=== PATIENT | female | born 1960 | race African-American/Black ===

== ENCOUNTER 2017-12-23 07:14 | Emergency (ER) | payer MEDICAID ==
[~2017-12-23] VITALS: Ht 172.7 cm; Wt 126.1 kg
[~2017-12-23 07:14] MED LIST: AZITHROMYCIN250 MG ORAL; NKM; NORVASC5 MG ORAL
[2017-12-23 07:47] VITALS: BP 183/110
[2017-12-23] MEDS ORDERED: HYDROCHLOROTHIA25 MG ORAL (07:48)
[2017-12-23] MEDS ORDERED: TESSALON PERLE100 MG ORAL (07:48)
[2017-12-23] MEDS ORDERED: AMLODIPINE BESY10 MG ORAL (07:48)
--- NOTE | 2017-12-23 07:55 | Emergency Room Report ---
History of Present Illness General Chief Complaint: Upper Respiratory Illness Source: Patient Present Illness HPI 57-year-old female with pmhx high blood pressure p/w cough for 7 days. Pt states cough is productive, with clear non bloody sputum. Also with runny nose with clear nasal discharge. Denies fever chills sob or chest pain. + sick contacts(granddaughter) Patient also found to be hypertensive, no complaining of any chest pain, no lightheadedness or dizziness States that she ran out of her high blood pressure medication a few days ago Allergies: Coded Allergies: MORPHINE (Unverified Allergy, Unknown, 01/08/15) Patient History Past Medical History: see triage record Past Surgical History: none Pertinent Family History: none Reviewed Nursing Documentation: PMH: Agreed, PSxH: Agreed Nursing Documentation-PMH Hx Cardiac Problems: Yes Hx Hypertension: Yes Hx Diabetes: Yes - pre dm Hx Cancer: No Hx Gastrointestinal Problems: Yes Hx Neurological Problems: No Review of Systems All Other Systems: negative except mentioned in HPI Physical Exam Vital Signs Date Time Temp Pulse Resp B/P (MAP) Pulse Ox O2 Delivery O2 Flow Rate FiO2 12/23/17 07:19 98.0 63 20 207/106 95 Room Air 98.1 Sp02 EP Interpretation: reviewed, normal General Appearance: normal inspection, well appearing, no apparent distress, alert, GCS 15, non-toxic Head: normocephalic, atraumatic Eyes: bilateral eye normal inspection, bilateral eye PERRL, bilateral eye EOMI ENT: normal ENT inspection, normal pharynx, normal voice, moist mucus membranes Neck: normal inspection, full range of motion, supple Respiratory: normal inspection, lungs clear, normal breath sounds, no respiratory distress, no retraction, no wheezing, speaking full sentences, chest symmetrical Cardiovascular #1: normal inspection, regular rate, rhythm, no edema, normal capillary refill Cardiovascular #2: 2+ radial (R), 2+ radial (L) Gastrointestinal: normal inspection, non tender, soft, non-distended, no guarding Musculoskeletal: normal inspection, back normal, normal range of motion, non- tender Neurologic: normal inspection, alert, oriented x3, responsive, motor strength/ tone normal, sensory intact, normal gait, speech normal Psychiatric: normal inspection, judgement/insight normal, memory normal Skin: normal inspection, normal color, no rash, warm/dry, well hydrated, normal turgor Medical Decision Making Diagnostic Impression: Primary Impression: Medication refill Additional Impressions: Upper respiratory infection Hypertension ER Course 57-year-old female p/w cough for 7 days. DDX: Viral URI vs. pneumonia Also with hypertension, asymptomatic Plan: CXR ER course: Patient remains nontoxic, not in resp distress. Patient given amlodipine and hydrochlorothiazide. Which is her home medications which she had run out of Disposition: Patient is to be discharged home with a prescription of Tessalon Perles, amlodipine, hydrochlorothiazide Strict precautions discussed with patient on when to return to the emergency room including hemoptysis, high fevers, chills, SOB, chest pain which may indicate severe illness. Patient is to follow up with their primary care doctor within 5 days in order for recheck, as well as getting a refill for her medications. Patient agrees with plan. Please note that this Emergency Department Report was dictated using Paystikchief medical officer technology software, occasionally this can lead to erroneous entry secondary to interpretation by the dictation equipment Chest X-ray CXR: Ordered: Yes 1 view Indication: Cough EP interpretation: Yes Interpretation: No consolidation, no effusion, no PTX, no acute cardiopulmonary disease Impression: No acute disease Electronically signed by Lizy Baez MD Last Vital Signs Date Time Temp Pulse Resp B/P (MAP) Pulse Ox O2 Delivery O2 Flow Rate FiO2 12/23/17 07:47 98.1 63 19 183/110 98 Room Air 98.1 Disposition: HOME, SELF-CARE Condition: Improved Scripts Hydrochlorothiazide* (HYDROCHLOROTHIAZIDE*) 25 Mg Tablet 25 MG ORAL DAILY, #14 TAB Prov: Lizy Baez M.D. 12/23/17 Benzonatate* (TESSALON PERLE*) 100 Mg Capsule 100 MG ORAL THREE TIMES A DAY, #21 PERLE Prov: Lizy Baez M.D. 12/23/17 Amlodipine Besylate* (AMLODIPINE BESYLATE*) 10 Mg Tablet 10 MG ORAL DAILY for 14 Days, #14 TAB 0 Refills Prov: Lizy Baez M.D. 12/23/17 Patient Instructions: Upper Respiratory Infection, Adult Additional Instructions: PLEASE SEE YOUR DOCTOR IN 1 WEEK TO GET REFILLS FOR OUR MEDICATION Lizy Baez M.D. Dec 23, 2017 07:55
[2017-12-23 08:20] VITALS: BP 179/104
--- NOTE | 2017-12-23 12:28 | Diagnostic Imaging Report ---
Indication: Reason For Exam: COUGH Technique: One view of the chest Comparison: 01/08/2015 Findings: The heart is enlarged. The aorta is tortuous ectatic and calcified Impression: No acute process
== END 2017-12-23 08:20 | disposition home or self-care (01) ==
LOC: EMR 07:50
DX: Z76.0 Encounter for issue of repeat prescription (principal); J06.9 Acute upper respiratory infection, unspecified; I10 Essential (primary) hypertension; Z88.5 Allergy status to narcotic agent
CPT/HCPCS: 71045; 99284

== ENCOUNTER 2020-01-17 07:28 | Inpatient (IN) | payer OTHER ==
[2020-01-17] VITALS (26 sets, daily range): BP systolic 97–166; BP diastolic 73–119
[~2020-01-17] VITALS: Ht 172.7 cm; Wt 158.8 kg
[~2020-01-17 07:28] MED LIST changes: +ALBUTEROL SULF8.5 GM INH; +AMLODIPINE BESY10 MG ORAL; +GUAIFENESIN DM118 M1 ORAL; +HYDROCHLOROTHIA25 MG ORAL; +PREDNISONE20 MG ORAL; +TESSALON PERLE100 MG ORAL; +ZITHROMAX250 MG ORAL
--- NOTE | 2020-01-17 07:35 | NUR ---
ED Nurse Note: Patient ALEJANDRA RA 94 from home to ED d/t shortness of breath x 2 hours along with new onset rapid HR of 191. Per EMS, patient was given adenosine 6mg and 12 mg en route to the hospital with no resolution of rapid HR. Patient currently short of breath, states she feels like she is having a panic attack. Patient on the engine monitor, Dr. Ulloa at bedside. Patient arrived with 20 g IV in left AC inserted by EMS. Blood drawn and sent to lab along with urine. Will give IV Cardizem per ERMD order. Addendum: 01/17/20 at 1119 by MILANA ED Nurse Note: Patient AxO x 4, able to verbalize needs. Cooperative and follows commands.
[2020-01-17 07:45] LABS: BASOPHILS % (AUTO) 1.1 % (0.0-2.0); EOSINOPHILS % (AUTO) 3.8 % (0.0-3.0); HEMATOCRIT 47.6 % (37.0-47.0); HEMOGLOBIN 15.5 G/DL (12.0-16.0); LYMPHOCYTES % (AUTO) 26.7 % (20.0-45.0); MEAN CORPUSCULAR VOLUME 83 FL (80-99); MONOCYTES % (AUTO) 5.6 % (1.0-10.0); NEUTROPHILS % (AUTO) 62.8 % (45.0-75.0); PLATELET COUNT 328 K/UL (150-450); RED BLOOD COUNT 5.74 M/UL (4.20-5.40); RED CELL DISTRIBUTION WIDTH 11.8 % (11.6-14.8); WHITE BLOOD COUNT 11.5 K/UL (4.8-10.8)
[2020-01-17] MEDS ORDERED: dilTIAZem HCl 25mg/5ml Inj IVP ONE ×2 (07:45→08:00)
[2020-01-17] MEDS ORDERED: Adenosine 6mg/2ml Inj IVP ONE (07:45)
[2020-01-17] MEDS ORDERED: dilTIAZem HCl 60mg tab ORAL ONE (07:45)
--- NOTE | 2020-01-17 07:45 | Emergency Room Report ---
History of Present Illness General Chief Complaint: Dyspnea/Respdistress Source: Patient Present Illness HPI Disclaimer: Please note that this report is being documented using [employer] technology. This can lead to erroneous entry secondary to incorrect interpretation by the dictating instrument. HPI: 59-year-old female history of hypertension presents for evaluation of chest pain shortness of breath. Began this morning approximately 6:30 AM. She reports feeling increasingly nervous along with palpitations. Recently seen by her PMD for an annual physical and diagnosed with a "heart abnormality" and was referred to cardiology but has not yet been evaluated. She has been compliant with her amlodipine, hydrochlorothiazide and aspirin regimen thus far. Denies recent fever, chills, cough, vomiting, diarrhea, recent travel or known sick contacts. She has been in isolation according to CDC and health department guidelines in the setting of the novel coronavirus pandemic. No prior instances of similar sensations. She is unsure about her new cardiac diagnosis. Former smoker. PMH: Hypertension PSH: Reviewed Allergies: Codeine, morphine Social Hx: Former smoker Allergies: Coded Allergies: CODEINE (Unverified Allergy, Unknown, 10/27/19) MORPHINE (Unverified Allergy, Unknown, 01/08/15) COVID-19 Screening Contact w/high risk pt: No Recent Travel to affected area: No Experienced COVID-19 symptoms?: No Nursing Documentation-PMH Past Medical History: No History, Except For Hx Cardiac Problems: Yes Hx Hypertension: Yes Hx Diabetes: Yes (pre dm ) Hx Cancer: No Hx Gastrointestinal Problems: Yes Hx Neurological Problems: No Review of Systems All Other Systems: negative except mentioned in HPI Physical Exam Vital Signs Date Time Temp Pulse Resp B/P (MAP) Pulse Ox O2 Delivery O2 Flow Rate FiO2 01/17/20 07:26 161 25 166/119 (135) 99 Room Air General: Awake and alert, no acute distress HEENT: NC/AT. EOMI. Cardiovascular: Tachycardic rate with irregularly irregular rhythm. Resp: Normal work of breathing. No cough Abdomen: Abdomen is soft, nondistended. Nontender Skin: Intact. No abrasions, laceration or rash over the exposed skin MSK: Normal tone and bulk. Moving all extremities. No obvious deformity. Neuro: Awake and alert. Mentating appropriately. Procedures Critical Care Time Critical Care Time Total critical care time: Approximately 45 minutes Due to a high probability of clinically significant, life threatening deterioration, the patient required the highest level of preparedness to intervene emergently and I personally spent this critical care time directly and personally managing the patient. This critical care time included obtaining a history, examining the patient, pulse oximetry, ordering and reviewing studies , ordering treatments, evaluating response to treatment and updating management plan as needed, frequent reassessment and discussion with other providers as well as arranging for ultimate disposition. This critical to care time was performed to assess and manage the high probability of life-threatening deterioration that could result in multiorgan failure. This critical care time is separate from the separately billable procedures and treating other patients. Medical Decision Making Diagnostic Impression: Primary Impression: Rapid atrial fibrillation ER Course Is a 59-year-old female presenting for evaluation of chest pain shortness of breath. She arrives tachycardic with an irregularly irregular rhythm consistent with rapid atrial fibrillation. Also on the differential SVT, WPW, ACS, multifocal atrial tachycardia to name a few. Based on initial EKG patient was given IV Cardizem bolus and loaded with oral Cardizem as well. Rate improving though remains tachycardic. Will give additional Cardizem and switch to drip if necessary. Vital signs otherwise are within normal limits showing mild hypertension. Mentating appropriately. Will obtain labs including cardiac enzymes, chest x-ray. Laboratory Tests Test 01/17/20 07:30 White Blood Count 11.5 K/UL (4.8-10.8) H Red Blood Count 5.74 M/UL (4.20-5.40) H Hemoglobin 15.5 G/DL (12.0-16.0) Hematocrit 47.6 % (37.0-47.0) H Mean Corpuscular Volume 83 FL (80-99) Mean Corpuscular Hemoglobin 27.0 PG (27.0-31.0) Mean Corpuscular Hemoglobin Concent 32.6 G/DL (32.0-36.0) Red Cell Distribution Width 11.8 % (11.6-14.8) Platelet Count 328 K/UL (150-450) Mean Platelet Volume 6.8 FL (6.5-10.1) Neutrophils (%) (Auto) 62.8 % (45.0-75.0) Lymphocytes (%) (Auto) 26.7 % (20.0-45.0) Monocytes (%) (Auto) 5.6 % (1.0-10.0) Eosinophils (%) (Auto) 3.8 % (0.0-3.0) H Basophils (%) (Auto) 1.1 % (0.0-2.0) Sodium Level 143 MMOL/L (136-145) Potassium Level 3.3 MMOL/L (3.5-5.1) L Chloride Level 103 MMOL/L (98-107) Carbon Dioxide Level 26 MMOL/L (21-32) Anion Gap 14 mmol/L (5-15) Blood Urea Nitrogen 12 mg/dL (7-18) Creatinine 0.9 MG/DL (0.55-1.30) Estimated Glomerular Filtration Rate > 60 mL/min (>60) Glucose Level 216 MG/DL (74-106) H Calcium Level 9.5 MG/DL (8.5-10.1) Phosphorus Level 3.1 MG/DL (2.5-4.9) Magnesium Level 1.7 MG/DL (1.8-2.4) L Total Bilirubin 0.8 MG/DL (0.2-1.0) Aspartate Amino Transferase (AST) 14 U/L (15-37) L Alanine Aminotransferase (ALT) 32 U/L (12-78) Alkaline Phosphatase 97 U/L (46-116) Troponin I 0.000 ng/mL (0.000-0.056) Pro-B-Type Natriuretic Peptide 9 pg/mL (0-125) Total Protein 8.0 G/DL (6.4-8.2) Albumin 3.8 G/DL (3.4-5.0) Globulin 4.2 g/dL Albumin/Globulin Ratio 0.9 (1.0-2.7) L EKG Diagnostic Results EKG Time: 07:25 Rate: tachycardiac Rhythm: other (Irregularly regular rhythm) Other Impression Rapid atrial fibrillation with left axis deviation. ASA given to the pt in ED: Yes Rhythm Strip Diag. Results Rhythm Strip Time: 07:25 EP Interpretation: yes Rate: 160s Rhythm: other (Irregularly irregular rhythm) Chest X-Ray Diagnostic Results Chest X-Ray Diagnostic Results : Chest X-Ray Ordered: Yes # of Views/Limited/Complete: 1 View Indication: Shortness of Breath EP Interpretation: Yes Interpretation: other (Bilateral vascular congestion. No infiltrate. No pneumothorax.) Impression: Other (Bilateral vascular congestion. ) Reevaluation Time: 09:22 Last Vital Signs Date Time Temp Pulse Resp B/P (MAP) Pulse Ox O2 Delivery O2 Flow Rate FiO2 01/17/20 07:26 161 25 166/119 (135) 99 Room Air Reevaluation Impression Troponin within normal limits. Patient remains in atrial fibrillation despite bolus of IV Cardizem x2 and oral Cardizem load. Started Cardizem drip. Will titrate to effect. 0.25 mg of digoxin was given as well. Chest x-ray shows no infiltrate and is otherwise unchanged from previous. She is feeling somewhat better. Blood pressure remained stable. Patient be admitted to the ICU. Admit to panel physician. Disposition: ADMITTED INPATIENT Condition: Serious Referrals: [facility],REFERRING (PCP) Edmund Ulloa MD Jan 17, 2020 07:45
--- NOTE | 2020-01-17 07:59 | NUR ---
ED Nurse Note: Updated patient's weight as stated by patient. ERMD notified. ERMD ordered to administer 35mg 2nd Cardizem (0.35mg/kg) instead of 30mg. STALIN Warner made aware.
[2020-01-17] MEDS ORDERED: dilTIAZem HCl 50mg/10ml Inj IVP ONE ×3 (08:00→11:45)
[2020-01-17 08:05] LABS: ALANINE AMINOTRANSFERASE 32 U/L (12-78); ALBUMIN 3.8 G/DL (3.4-5.0); ALBUMIN/GLOBULIN RATIO 0.9 (1.0-2.7); ALKALINE PHOSPHATASE 97 U/L (46-116); ANION GAP 14 mmol/L (5-15); ASPARTATE AMINO TRANSFERASE 14 U/L (15-37); BILIRUBIN,TOTAL 0.8 MG/DL (0.2-1.0); BLOOD UREA NITROGEN 12 mg/dL (7-18); CARBON DIOXIDE 26 MMOL/L (21-32); CHLORIDE 103 MMOL/L (98-107); CREATININE 0.9 MG/DL (0.55-1.30); POTASSIUM 3.3 MMOL/L (3.5-5.1); SODIUM 143 MMOL/L (136-145)
[2020-01-17] MEDS ORDERED: ASPIR 8181 MG ORAL (08:12)
[2020-01-17 08:17] LABS: CALCIUM 9.5 MG/DL (8.5-10.1)
[2020-01-17 08:26] LABS: PHOSPHORUS 3.1 MG/DL (2.5-4.9)
[2020-01-17] MEDS ORDERED: dilTIAZem Premix 125mg/125ml 125 ML IVPB SCH ×2 (08:30→16:00)
--- NOTE | 2020-01-17 08:45 | NUR ---
ED Nurse Note: Patient stable, HR currently 136, BP 100/83. Patient feel better than when she arrived, she is tolerating medications well.
--- NOTE | 2020-01-17 09:00 | Diagnostic Imaging Report ---
Indication: Reason For Exam: SOB Technique: One view of the chest Comparison: none Findings: Body habitus limits evaluation. Stable slightly prominent midlung and basilar interstitial markings without definite discrete infiltrates. Normal heart size. Impression: Stable prominent mid and lower lung interstitial markings without discrete infiltrate, suspect baseline for this patient as similar to the prior study. No definite acute process
--- NOTE | 2020-01-17 09:00 | NUR ---
ED Nurse Note: Cardizem titrated up from 10 mg/hr to 15 mg/hr per Dr. Ulloa. Patient tolerating well.
[2020-01-17] MEDS ORDERED: Digoxin 0.5mg/2ml Inj IVP ONE (09:45)
--- NOTE | 2020-01-17 10:00 | NUR ---
ED Nurse Note: Patient resting in bed, no s/s of acute distress. BP 105/72, HR 123, O2 95%, 21RR.
--- NOTE | 2020-01-17 10:53 | NUR ---
ED Nurse Note: Patient O2 sat decreased to 89% while sleeping. Dr. Ulloa aware, placed patient on 2L NC per Dr. Ulloa.
--- NOTE | 2020-01-17 12:25 | Cardiac Electrophysiology PN ---
Subjective Subjective [id number] Objective Last 24 Hour Vital Signs Date Time Temp Pulse Resp B/P (MAP) Pulse Ox O2 Delivery O2 Flow Rate FiO2 01/17/20 10:32 148 168/106 01/17/20 09:43 144 01/17/20 08:01 155 145/86 01/17/20 08:00 168 175/110 01/17/20 07:44 161 01/17/20 07:35 98.1 165 25 166/119 99 Room Air 01/17/20 07:35 161 25 Room Air 01/17/20 07:26 161 25 166/119 (135) 99 Room Air Laboratory Tests Test 01/17/20 07:30 White Blood Count 11.5 K/UL (4.8-10.8) H Red Blood Count 5.74 M/UL (4.20-5.40) H Hemoglobin 15.5 G/DL (12.0-16.0) Hematocrit 47.6 % (37.0-47.0) H Mean Corpuscular Volume 83 FL (80-99) Mean Corpuscular Hemoglobin 27.0 PG (27.0-31.0) Mean Corpuscular Hemoglobin Concent 32.6 G/DL (32.0-36.0) Red Cell Distribution Width 11.8 % (11.6-14.8) Platelet Count 328 K/UL (150-450) Mean Platelet Volume 6.8 FL (6.5-10.1) Neutrophils (%) (Auto) 62.8 % (45.0-75.0) Lymphocytes (%) (Auto) 26.7 % (20.0-45.0) Monocytes (%) (Auto) 5.6 % (1.0-10.0) Eosinophils (%) (Auto) 3.8 % (0.0-3.0) H Basophils (%) (Auto) 1.1 % (0.0-2.0) Sodium Level 143 MMOL/L (136-145) Potassium Level 3.3 MMOL/L (3.5-5.1) L Chloride Level 103 MMOL/L (98-107) Carbon Dioxide Level 26 MMOL/L (21-32) Anion Gap 14 mmol/L (5-15) Blood Urea Nitrogen 12 mg/dL (7-18) Creatinine 0.9 MG/DL (0.55-1.30) Estimat Glomerular Filtration Rate > 60 mL/min (>60) Glucose Level 216 MG/DL (74-106) H Calcium Level 9.5 MG/DL (8.5-10.1) Phosphorus Level 3.1 MG/DL (2.5-4.9) Magnesium Level 1.7 MG/DL (1.8-2.4) L Total Bilirubin 0.8 MG/DL (0.2-1.0) Aspartate Amino Transf (AST/SGOT) 14 U/L (15-37) L Alanine Aminotransferase (ALT/SGPT) 32 U/L (12-78) Alkaline Phosphatase 97 U/L (46-116) Troponin I 0.000 ng/mL (0.000-0.056) Pro-B-Type Natriuretic Peptide 9 pg/mL (0-125) Total Protein 8.0 G/DL (6.4-8.2) Albumin 3.8 G/DL (3.4-5.0) Globulin 4.2 g/dL Albumin/Globulin Ratio 0.9 (1.0-2.7) Sim Patel MD Jan 17, 2020 12:25
--- NOTE | 2020-01-17 12:30 | NUR ---
NURSE NOTES: Pt received from IRASEMA Warner RN in stable condition without cardiopulmonary distress via hospital bed and O2 tank. Pt is AAOx4 on 2L O2 via NC, able to follow commands, bilat pupils 3mm PERRLA +. Pt hooked to quality assurance monitor final and is noted in Afib with rate of 110-120 bpm. Pt denies SOB and CP at this time. VS as follows: BP124/107 HR 124 Temp 98.8 F ax RR 19 spO2 99%. Pt on 2L O2 via NC with breath sounds that are CTA to all lung lobes upon auscultation. Skin is intact at this time. Bowel sounds active to all quadrants, abd is round, soft, and non-tender. Pt agreed to request bedpan to void. Pt has a LAC 18g IV running cardizem drip at 15 mg/hr. Pt belongings reviewed with pt and IRASEMA Warner RN. Pt educated on fall precaution and given call light, bed is in lowest position, yellow socks on, bed alarm on, side rails up x 3, call light within reach. Will continue to monitor pt.
--- NOTE | 2020-01-17 12:41 | NUR ---
ED Nurse Note: Report given to Bonita GANT in the ICU.
--- NOTE | 2020-01-17 14:00 | NUR ---
NURSE NOTES: Left message for Dr Zendejas with request for admission orders, awaiting call back.
--- NOTE | 2020-01-17 14:15 | NUR ---
NURSE NOTES: Left message for Dr Kinsey with potassium results for today of 3.3, awaiting call back.
--- NOTE | 2020-01-17 15:00 | NUR ---
NURSE NOTES: Received call back from Dr Zendejas with order to continue cardizem drip (titrate per protocol), continue ASA 81 mg PO daily, discontinue home meds (HCTZ and Norvasc).
[2020-01-17] MEDS ORDERED: Digoxin 0.5mg/2ml Inj IVP SCH (15:15)
--- NOTE | 2020-01-17 15:50 | NUR ---
NURSE NOTES: Spoke with Dr Sainz over phone, received order for potassium replacement (20 meQ KDUR PO once).
--- NOTE | 2020-01-17 16:00 | NUR ---
NURSE NOTES: Pt given 20 meQ KDUR PO, new cardizem bag hung at this time, HR noted 85-90 bpm (controlled Afib to court recording monitor).
--- NOTE | 2020-01-17 16:45 | NUR ---
NURSE NOTES: Cardizem drip now titrated down to 10 mg/hr with HR in 80s at this time, pt in no distress. Purewick placed for frequent voiding.
--- NOTE | 2020-01-17 17:14 | Consultation ---
DATE OF CONSULTATION: 01/17/2020 PULMONARY CONSULTATION/ICU CONSULTATION HISTORY OF PRESENT ILLNESS: This is a 59-year-old female with a history of previous marijuana smoking and hypertension, who came to hospital with chest pain. She also reports cough and shortness of breath. The patient states she has been seeing her manager business information/doctor who states that she has abnormality in her heart. She is unable to provide me further history. The patient states she is hypertensive and takes amlodipine and HCTZ. PAST MEDICAL HISTORY: Hypertension, prediabetes, marijuana smoker. PAST SURGICAL HISTORY: None reported. ALLERGIES: To codeine, morphine. HOME MEDICATIONS: Amlodipine, , aspirin. REVIEW OF SYSTEMS: Denies any headaches, hematemesis, melena, hematochezia, . PHYSICAL EXAMINATION: GENERAL: Reveals obese 59-year-old female. VITAL SIGNS: Blood pressure 140/80, heart rate 150, respirations are 18, O2 saturation 99% on room air. HEENT: Unremarkable. LUNGS: Decreased breath sounds bilaterally. ABDOMEN: Soft. EXTREMITIES: There is no edema. LABORATORY DATA: Lab testing shows white count 87616, otherwise normal CBC and BMP. Potassium 3.3, glucose 216, magnesium 1.7. Microbiology is pending. X-ray chest shows bilateral interstitial markings, appear to be chronic compared to previous. EKG shows atrial fibrillation with RVR. IMPRESSION: 1. Atrial fibrillation with RVR. 2. Hypertension. 3. Marijuana smoker. DISCUSSION: Admit to the hospital. Rate control with digoxin and Cardizem. ICU admission. We will follow carefully. Dillon Sainz M.D. DR: Isamar JOB#: [id number] CC:
--- NOTE | 2020-01-17 18:02 | Consultation ---
Consult Note Consult Note I am asked to evaluate the patient at the request of Dr. Kinsey for fluid and electrolyte management HPI: 59-year-old female history of hypertension presents for evaluation of chest pain shortness of breath. Began this morning approximately 6:30 AM. She reports feeling increasingly nervous along with palpitations. Recently seen by her PMD for an annual physical and diagnosed with a "heart abnormality" and was referred to cardiology but has not yet been evaluated. She has been compliant with her amlodipine, hydrochlorothiazide and aspirin regimen thus far. Denies recent fever, chills, cough, vomiting, diarrhea, recent travel or known sick contacts. She has been in isolation according to CDC and health department guidelines in the setting of the novel coronavirus pandemic. No prior instances of similar sensations. She is unsure about her new cardiac diagnosis. Former smoker. PMH: Hypertension PSH: Reviewed Social Hx: Former smoker Allergies: CODEINE (Unverified Allergy, Unknown, 10/27/19) MORPHINE (Unverified Allergy, Unknown, 01/08/15) COVID-19 Screening Contact w/high risk pt: No Recent Travel to affected area: No Experienced COVID-19 symptoms?: No Nursing Documentation-PMH Past Medical History: No History, Except For Hx Cardiac Problems: Yes Hx Hypertension: Yes Hx Diabetes: Yes - pre dm Hx Gastrointestinal Problems: Yes Assessment/Plan Electrolyte imbalance Low magnesium and low potassium Obese Marijuana abuser Atrial fibrillation with rapid ventricular rate Hypertension Plan: Per cardiology advice Electrolytes in check Chemistry panels and electrolyte check Urine for analysis and tox screen Keep the blood pressure in check Per orders Ghulam Cutler MD Jan 17, 2020 18:02
[2020-01-17] MEDS ORDERED: Metoclopramide 10mg/2ml Inj IVP PRN (18:15)
--- NOTE | 2020-01-17 18:30 | NUR ---
NURSE NOTES: Pt converted to NSR, Dr Zendejas informed and would like to continue cardizem drip until 0901/17.
--- NOTE | 2020-01-17 18:57 | NUR ---
NURSE NOTES: Spoke with Charbel from pharmacy to confirm cardizem drip will be d/c approximately 0900 am tomorrow.
[2020-01-17 19:01] LABS: APPEARANCE,URINE CLEAR; BILIRUBIN, URINE NEGATIVE (NEGATIVE); COLOR,URINE PALE YELLOW; GLUCOSE, URINE (UA) NEGATIVE (NEGATIVE); KETONES,URINE NEGATIVE (NEGATIVE); LEUKOCYTE ESTERASE ,URINE 1+ (NEGATIVE); NITRITE,URINE NEGATIVE (NEGATIVE); PH,URINE 7 (4.5-8.0); PROTEIN,URINE 1+ (NEGATIVE); UROBILINOGEN,URINE NORMAL MG/DL (0.0-1.0)
--- NOTE | 2020-01-17 19:11 | NUR ---
HAND-OFF: Report given to Glo Avina, charge entry specialist. Pt remains in stable condition, NSR to monitor car operator, remains on 2.5 mg/hr cardizem until tomorrow [address] Zendejas. No distress noted.
--- NOTE | 2020-01-17 20:10 | NUR ---
NURSE NOTES: Patient received from STALIN Fragoso. patient awake alert oriented x4. respirations even and unlabored on 2L NC. BP 124/80, HR 78, Temp 99.0F oral, NSR on monitor. patient running cardizem 2.5mg/hr through right hand PIV gauge 20, clean and asymptomatic. left AC gauge 18 saline lock. skin warm dry intact. Purewick in place. will continue to monitor.
--- NOTE | 2020-01-17 20:15 | Consultation ---
DATE OF CONSULTATION: 01/17/2020 INFECTIOUS DISEASES CONSULTATION CONSULTING PHYSICIAN: Ba Torres MD. PRIMARY ATTENDING PHYSICIAN: Daisy Kinsey MD. REASON FOR CONSULTATION: Leukocytosis. HISTORY OF PRESENT ILLNESS: This is a 59-year-old female admitted admitted today to the hospital because of chest pain, shortness of breath, palpitation, started the symptoms this morning. The patient had an annual physical exam by primary doctor as outpatient and she was diagnosed with heart abnormality, referred to a transportation lead but was not evaluated. Denies any fever and coughing at this time. Denies any sick contacts. PAST MEDICAL HISTORY: Hypertension, borderline diabetes mellitus, obesity. ALLERGIES: Codeine and morphine. MEDICATIONS: Cardizem drip. SOCIAL HISTORY: Single. Quit smoking and smoking marijuana since October. Has grown up children. REVIEW OF SYSTEMS: Currently feels better. No fever. No chills. No coughing. No shortness of breath. No chest pain. No problem passing urine. PHYSICAL EXAMINATION: VITAL SIGNS: Temperature 98.1, pulse 148, blood pressure 168/106. GENERAL APPEARANCE: Obese, no acute distress. HEAD AND NECK: [place] conjunctiva. HEART: Tachycardic and regular. LUNGS: Clear. ABDOMEN: Soft and nontender. EXTREMITIES: No edema. NEUROLOGIC: Awake, alert, oriented x3. No focal signs. LABORATORY AND DIAGNOSTIC DATA: WBC 11.5, hemoglobin 15.5, hematocrit 47.6, platelets 328. Sodium 143, potassium 3.3, chloride 103, bicarb 26, BUN 12, creatinine 0.9, glucose of 216. Magnesium was low 1.7. Chest x-ray stable, prominent mid to lower lung interstitial marking without discrete infiltrate, no definite acute process. IMPRESSION: Borderline leukocytosis, may be part of systemic inflammatory response syndrome, has atrial fibrillation with rapid ventricular rate, has hypertension, seems to have diabetes mellitus, morbid obesity. RECOMMENDATION: Observe off antibiotic. According to the ER doctor has no criteria for COVID test. We will follow up CBC. At the end of my exam, I thank Dr. Kinsey for involving me in the care of this patient. Ba Torres M.D. DR: Merlyn JOB#: [id number] CC: RAYRAY
--- NOTE | 2020-01-17 20:59 | Consultation ---
DATE OF CONSULTATION: 01/17/2020 CARDIOLOGY CONSULTATION CONSULTING PHYSICIAN: Sim Zendejas MD. REFERRING PHYSICIAN: Daisy Kinsey MD. REASON FOR CONSULTATION: Atrial fibrillation with rapid ventricular response. HISTORY OF PRESENT ILLNESS: The patient is a very pleasant 59-year-old lady with history of hypertension, who presented to the emergency room complaining of chest pain and shortness of breath, which started at 6:30 in the morning. The patient also felt palpitation. The patient was seen by her primary care doctor and diagnosed with heart abnormality and was referred for Cardiology evaluation, but has not been scheduled yet. The patient has been taking amlodipine, hydrochlorothiazide, and aspirin, but no full anticoagulation. The patient has been in isolation according to CDC and health department guidelines in the setting of novel coronavirus pandemic. In the ER, the patient was found to be in atrial fibrillation with rapid ventricular response and heart rate of more than 160 beats per minute. Blood pressure was 166/119 as well. The patient received IV Cardizem in the emergency room and hear rate slightly improved. REVIEW OF SYSTEMS: Negative other than what was mentioned in the history of present illness. PAST MEDICAL HISTORY: As mentioned above. FAMILY HISTORY: Noncontributory. SOCIAL HISTORY: She lives at home. Does not smoke or drink alcohol. PHYSICAL EXAMINATION: VITAL SIGNS: Show blood pressure of 168/106, pulse is 148, respirations 18. HEAD AND NECK: Show no JVD. LUNGS: Clear. CARDIOVASCULAR: Irregular and tachycardic S1 and S2 with no gallop or murmur. ABDOMEN: Soft. EXTREMITIES: No pitting edema. LABORATORY AND DIAGNOSTIC DATA: Labs show white cell count of 11.5, hematocrit 15.5, hematocrit of 47.6, and platelet count of 328,000. Sodium 142, potassium 3.3, BUN of 12, creatinine 0.9, and glucose of 216. First troponin is negative. ASSESSMENT AND PLAN: 1. Atrial fibrillation with rapid ventricular response. Start the patient on Cardizem drip. The patient received 0.25 mg of IV digoxin as well. Start the patient on Eliquis 5 mg b.i.d. for anticoagulation purposes in view of her female gender and history of hypertension that makes CHADS score of 2. We will completely rule out [place] protocol as well. 2. Hypertension. We will maximize Cardizem first. Echocardiogram is pending. 3. Hypokalemia. Potassium will be replaced. Thank you very much for allowing me to participate in the care of this patient. Please do not hesitate to contact me for any questions regarding my evaluation. Sim Zendejas M.D. DR: Bhanu JOB#: [id number] CC:
--- NOTE | 2020-01-17 22:00 | NUR ---
NURSE NOTES: Patient awake alert oriented. BP 135/78 HR 74, NSR on monitor. patient running cardizem at 2.5mg/hr through right hand PIV clean and asymptomatic. patient repositioned self. will continue to monitor. bed locked lowest position call light within reach.
[2020-01-18] VITALS (31 sets, daily range): BP systolic 105–156; BP diastolic 60–102
--- NOTE | 2020-01-18 | NUR ---
NURSE NOTES: Patient awake alert oriented x4. BP 131/77 HR70, Temp 98.8F oral. NSR on monitor. patient running Cardizem 2.5mg/hr on left AC gauge 18, clean and asymptomatic. respirations even and unlabored on 2L NC. patient stated back pain, prn tylenol administered. will continue to monitor.
--- NOTE | 2020-01-18 02:00 | NUR ---
NURSE NOTES: patient asleep arousable to name. BP 119/97, HR 66 and afebrile. respirations even and unlabored on 2L NC. patient running cardizem 2.5mg/Hr through left AC PIV clean and asymptomatic. patient repositioned self. will continue to monitor. bed locked lowest position call light within reach.
--- NOTE | 2020-01-18 04:00 | NUR ---
NURSE NOTES: patient awake alert and oriented. VSS and afebrile. patient running cardizem 2.5mg/hr through left AC gauge 18, clean and asymptomatic. purewick in place. will continue to monitor. bed locked lowest position call light within reach.
--- NOTE | 2020-01-18 06:00 | NUR ---
NURSE NOTES: patient awake alert and oriented. VSS and afebrile. respirations even and unlabored on 2L NC. left AC PIV gauge 18 running cardizem 2.5mg/hr clean and asymptomatic. skin warm dry intact. Purewick in place, draining rhoda urine. will continue to monitor. bed locked lowest position call light within reach.
--- NOTE | 2020-01-18 07:07 | NUR ---
HAND-OFF: Report given to STALIN Suarez.
[2020-01-18 07:25] LABS: BASOPHILS % (AUTO) 0.8 % (0.0-2.0); EOSINOPHILS % (AUTO) 2.7 % (0.0-3.0); HEMATOCRIT 42.7 % (37.0-47.0); HEMOGLOBIN 14.2 G/DL (12.0-16.0); MEAN CORPUSCULAR VOLUME 83 FL (80-99); MONOCYTES % (AUTO) 5.6 % (1.0-10.0); NEUTROPHILS % (AUTO) 67.9 % (45.0-75.0); PLATELET COUNT 328 K/UL (150-450); RED BLOOD COUNT 5.12 M/UL (4.20-5.40); WHITE BLOOD COUNT 10.7 K/UL (4.8-10.8)
[2020-01-18] MEDS ORDERED: Oxymetazoline 0.05% Na Spray 30ml NASAL PRN (08:00)
--- NOTE | 2020-01-18 08:00 | NUR ---
Report received from STALIN Alexander for continuity of care. Pt resting in bed, calm, no signs of acute distress. Pt is RA, VSS, HR average 68-74 bpm with Cardizem drip at 2.5mg/hr. SLIV RT hand. LT AC patent and infusing Cardizem. Cardizem drip to be turned off at 0810. Breakfast tray at pt side. Pt on SCD. Purewick in place; pt kept dry. Spoke with Dr. Cutler about pt condition. All safety measures met; will continue to monitor.
--- NOTE | 2020-01-18 08:10 | NUR ---
Nurse Note: Cardizem drip turned off; pt tolerating well. HR at 70, BP 120/72. Dr. Torres with pt. Will continue to monitor.
[2020-01-18 08:15] LABS: ALANINE AMINOTRANSFERASE 26 U/L (12-78); ALBUMIN 3.3 G/DL (3.4-5.0); ALBUMIN/GLOBULIN RATIO 0.9 (1.0-2.7); ALKALINE PHOSPHATASE 84 U/L (46-116); ANION GAP 15 mmol/L (5-15); ASPARTATE AMINO TRANSFERASE 14 U/L (15-37); BILIRUBIN,TOTAL 1.1 MG/DL (0.2-1.0); BLOOD UREA NITROGEN 11 mg/dL (7-18); CARBON DIOXIDE 24 MMOL/L (21-32); CHLORIDE 105 MMOL/L (98-107); CHOLESTEROL 178 MG/DL (< 200); CREATININE 0.8 MG/DL (0.55-1.30); HDL CHOLESTEROL 31 MG/DL (40-60); POTASSIUM 3.9 MMOL/L (3.5-5.1); SODIUM 144 MMOL/L (136-145); TRIGLYCERIDES 156 MG/DL (30-150)
[2020-01-18 08:25] LABS: PHOSPHORUS 3.3 MG/DL (2.5-4.9)
--- NOTE | 2020-01-18 08:25 | Infectious Diseases Prog Note ---
Assessment/Plan Assessment/Plan IMPRESSION: Resolved leukocytosis Atrial fibrillation with rapid ventricular rate, Hypertension, Diabetes mellitus, Morbid obesity. RECOMMENDATION: Observe off antibiotic. Subjective ROS Limited/Unobtainable: No Constitutional: Reports: no symptoms Respiratory: Reports: no symptoms Cardiovascular: Reports: no symptoms, other - off of cardizem drip Gastrointestinal/Abdominal: Reports: no symptoms Genitourinary: Reports: no symptoms Neurologic: Reports: no symptoms Allergies: Coded Allergies: CODEINE (Unverified Allergy, Unknown, 10/27/19) MORPHINE (Unverified Allergy, Unknown, 01/08/15) Objective Vital Signs Last 24 Hour Vital Signs Date Time Temp Pulse Resp B/P (MAP) Pulse Ox O2 Delivery O2 Flow Rate FiO2 01/18/20 07:00 64 21 115/75 (88) 93 01/18/20 06:30 69 17 125/73 (90) 95 01/18/20 06:00 69 18 120/75 (90) 92 01/18/20 05:30 64 18 119/64 (82) 95 01/18/20 05:00 64 15 122/78 (93) 97 01/18/20 04:30 64 20 122/82 (95) 93 01/18/20 04:00 Nasal Cannula 2.0 01/18/20 04:00 98.9 73 23 130/80 (97) 92 01/18/20 04:00 2.0 01/18/20 04:00 84 01/18/20 03:30 72 13 124/77 (93) 97 01/18/20 03:00 74 14 126/78 (94) 96 01/18/20 02:30 67 16 110/81 (91) 92 01/18/20 02:00 66 19 119/77 (91) 91 01/18/20 01:30 74 24 105/60 (75) 90 01/18/20 01:00 75 21 120/67 (84) 96 01/18/20 00:30 76 19 117/80 (92) 97 01/18/20 00:00 Nasal Cannula 2.0 01/18/20 00:00 79 01/18/20 00:00 2.0 01/18/20 00:00 98.8 70 20 131/77 (95) 95 01/17/20 23:30 77 16 118/82 (94) 98 01/17/20 23:00 74 20 129/83 (98) 96 01/17/20 22:30 76 19 97/79 (85) 94 01/17/20 22:00 74 19 135/78 (97) 99 01/17/20 21:00 72 20 129/78 (95) 98 01/17/20 21:00 Nasal Cannula 2.0 01/17/20 20:30 77 20 127/112 (117) 97 01/17/20 20:00 2.0 01/17/20 20:00 77 01/17/20 20:00 99.0 78 18 124/80 (95) 94 01/17/20 19:00 80 18 128/80 (96) 98 01/17/20 18:45 81 19 138/83 (101) 98 01/17/20 18:30 81 20 146/80 (102) 99 01/17/20 18:30 78 01/17/20 18:15 82 19 126/75 (92) 98 01/17/20 18:00 83 21 126/96 (106) 99 01/17/20 17:45 74 12 131/78 (95) 99 01/17/20 17:30 90 19 139/81 (100) 97 01/17/20 17:15 73 19 127/105 (112) 97 01/17/20 17:00 73 19 134/83 (100) 98 01/17/20 16:45 69 17 119/81 (94) 97 01/17/20 16:30 78 15 125/90 (102) 96 01/17/20 16:00 98.6 116 21 107/73 (84) 93 01/17/20 16:00 Nasal Cannula 2.0 01/17/20 16:00 137 01/17/20 16:00 2.0 01/17/20 15:43 125 01/17/20 15:30 122 26 112/92 (99) 95 01/17/20 15:07 125 20 115/81 (92) 96 01/17/20 14:30 124 22 126/100 (109) 99 01/17/20 14:00 125 22 126/100 (109) 99 01/17/20 13:30 129 22 147/119 (128) 99 01/17/20 13:18 139 01/17/20 13:15 98.8 128 19 124/107 (113) 99 01/17/20 13:15 2.0 01/17/20 13:15 Nasal Cannula 2.0 01/17/20 12:46 127 136/81 01/17/20 10:32 148 168/106 01/17/20 09:43 144 Height (Feet): 5 Height (Inches): 8.00 Weight (Pounds): 125 General Appearance: no acute distress, other - obese Respiratory/Chest: lungs clear Cardiovascular: normal rate, irregularly irregular Abdomen: soft, non tender Extremities: no edema Neurologic/Psychiatric: alert, oriented x 3, responsive Laboratory Tests Test 01/17/20 18:00 01/18/20 04:50 Urine Color Pale yellow Urine Appearance Clear Urine pH 7 (4.5-8.0) Urine Specific [place] 1.015 (1.005-1.035) Urine Protein 1+ (NEGATIVE) H Urine Glucose (UA) Negative (NEGATIVE) Urine Ketones Negative (NEGATIVE) Urine Blood 1+ (NEGATIVE) H Urine Nitrite Negative (NEGATIVE) Urine Bilirubin Negative (NEGATIVE) Urine Urobilinogen Normal MG/DL (0.0-1.0) Urine Leukocyte Esterase 1+ (NEGATIVE) H Urine RBC 0-2 /HPF (0 - 2) Urine WBC 2-4 /HPF (0 - 2) Urine Squamous Epithelial Cells Few /LPF (NONE/OCC) Urine Bacteria Few /HPF (NONE) Urine Opiates Screen Negative (NEGATIVE) Urine Barbiturates Screen Negative (NEGATIVE) Phencyclidine (PCP) Screen Negative (NEGATIVE) Urine Amphetamines Screen Negative (NEGATIVE) Urine Benzodiazepines Screen Negative (NEGATIVE) Urine Cocaine Screen Negative (NEGATIVE) Urine Marijuana (THC) Screen Negative (NEGATIVE) White Blood Count 10.7 K/UL (4.8-10.8) Red Blood Count 5.12 M/UL (4.20-5.40) Hemoglobin 14.2 G/DL (12.0-16.0) Hematocrit 42.7 % (37.0-47.0) Mean Corpuscular Volume 83 FL (80-99) Mean Corpuscular Hemoglobin 27.8 PG (27.0-31.0) Mean Corpuscular Hemoglobin Concent 33.4 G/DL (32.0-36.0) Red Cell Distribution Width 12.0 % (11.6-14.8) Platelet Count 328 K/UL (150-450) Mean Platelet Volume 6.2 FL (6.5-10.1) L Neutrophils (%) (Auto) 67.9 % (45.0-75.0) Lymphocytes (%) (Auto) 23.0 % (20.0-45.0) Monocytes (%) (Auto) 5.6 % (1.0-10.0) Eosinophils (%) (Auto) 2.7 % (0.0-3.0) Basophils (%) (Auto) 0.8 % (0.0-2.0) Sodium Level 144 MMOL/L (136-145) Potassium Level 3.9 MMOL/L (3.5-5.1) Chloride Level 105 MMOL/L (98-107) Carbon Dioxide Level 24 MMOL/L (21-32) Anion Gap 15 mmol/L (5-15) Blood Urea Nitrogen 11 mg/dL (7-18) Creatinine 0.8 MG/DL (0.55-1.30) Estimat Glomerular Filtration Rate > 60 mL/min (>60) Glucose Level 172 MG/DL (74-106) H Hemoglobin A1c 7.6 % (4.3-6.0) H Uric Acid Pending Calcium Level Pending Phosphorus Level Pending Magnesium Level Pending Total Bilirubin 1.1 MG/DL (0.2-1.0) H Direct Bilirubin 0.1 MG/DL (0.0-0.3) Aspartate Amino Transf (AST/SGOT) 14 U/L (15-37) L Alanine Aminotransferase (ALT/SGPT) 26 U/L (12-78) Alkaline Phosphatase 84 U/L (46-116) Troponin I Pending C-Reactive Protein, Quantitative Pending Pro-B-Type Natriuretic Peptide Pending Total Protein 7.0 G/DL (6.4-8.2) Albumin 3.3 G/DL (3.4-5.0) L Globulin 3.7 g/dL Albumin/Globulin Ratio 0.9 (1.0-2.7) L Triglycerides Level 156 MG/DL (30-150) H Cholesterol Level 178 MG/DL (< 200) LDL Cholesterol 106 mg/dL (<100) H HDL Cholesterol 31 MG/DL (40-60) L Cholesterol/HDL Ratio 5.7 (3.3-4.4) H Thyroid Stimulating Hormone (TSH) 2.027 uiU/mL (0.358-3.740) Free Thyroxine 1.02 NG/DL (0.76-1.46) Free Triiodothyronine Pending Digoxin Level 0.6 NG/ML (0.9-2.0) L Current Medications Medications (Trade) Dose Ordered Sig/Jackeline Route PRN Reason Start Time Stop Time Status Last Admin Dose Admin Acetaminophen (Tylenol) 650 mg Q4H PRN ORAL Temp >100.5 01/18/20 01:00 02/17/20 00:59 01/18/20 01:07 Aspirin (Ecotrin) 81 mg DAILY ORAL 01/18/20 09:00 03/03/20 08:59 Docusate Sodium (Colace) 100 mg THREE TIMES A DAY ORAL 01/18/20 09:00 02/17/20 08:59 Metoclopramide HCl (Reglan) 10 mg Q6H PRN IVP Nausea & Vomiting 01/17/20 18:15 02/16/20 18:14 Oxymetazoline HCl (Afrin Nasal [place]) 1 spray Q12H PRN NASAL nasal congestion 01/18/20 08:00 04/17/20 07:59 Pantoprazole (Protonix) 40 mg EVERY 12 HOURS ORAL 01/17/20 21:00 02/16/20 20:59 01/17/20 20:30 Potassium Chloride (K-Dur) 40 meq DAILY ORAL 01/17/20 18:15 04/16/20 18:14 01/17/20 18:18 Ba Torres MD Jan 18, 2020 08:25
[2020-01-18 08:34] LABS: BILIRUBIN,DIRECT 0.1 MG/DL (0.0-0.3)
[2020-01-18] MEDS: Docusate 100mg cap ORAL SCH ×3 (08:41→17:35)
[2020-01-18] MEDS ORDERED: Aspirin EC 81mg tab ORAL SCH (09:00)
--- NOTE | 2020-01-18 10:15 | Pulmonology Progress Note ---
Assessment/Plan Assessment/Plan IMPRESSION: 1. Atrial fibrillation with RVR. 2. Hypertension. 3. Marijuana smoker. DISCUSSION: Rate control with digoxin and Cardizem. Transfer out of ICU once cleared by cardiology. I will follow carefully. Dillon Sainz M.D. Subjective Interval Events: Now in NSR Constitutional: Reports: no symptoms HEENT: Repors: no symptoms Respiratory: Reports: no symptoms Cardiovascular: Reports: no symptoms Gastrointestinal/Abdominal: Reports: no symptoms Allergies: Coded Allergies: CODEINE (Unverified Allergy, Unknown, 10/27/19) MORPHINE (Unverified Allergy, Unknown, 01/08/15) Objective Last 24 Hour Vital Signs Date Time Temp Pulse Resp B/P (MAP) Pulse Ox O2 Delivery O2 Flow Rate FiO2 01/18/20 09:00 75 22 127/73 (91) 97 01/18/20 09:00 70 20 156/98 (117) 98 01/18/20 08:34 0.5 01/18/20 08:00 Room Air 01/18/20 08:00 98.7 70 20 156/98 (117) 98 01/18/20 08:00 71 01/18/20 07:00 64 21 115/75 (88) 93 01/18/20 06:30 69 17 125/73 (90) 95 01/18/20 06:00 69 18 120/75 (90) 92 01/18/20 05:30 64 18 119/64 (82) 95 01/18/20 05:00 64 15 122/78 (93) 97 01/18/20 04:30 64 20 122/82 (95) 93 01/18/20 04:00 Nasal Cannula 2.0 01/18/20 04:00 98.9 73 23 130/80 (97) 92 01/18/20 04:00 2.0 01/18/20 04:00 84 01/18/20 03:30 72 13 124/77 (93) 97 01/18/20 03:00 74 14 126/78 (94) 96 01/18/20 02:30 67 16 110/81 (91) 92 01/18/20 02:00 66 19 119/77 (91) 91 01/18/20 01:30 74 24 105/60 (75) 90 01/18/20 01:00 75 21 120/67 (84) 96 01/18/20 00:30 76 19 117/80 (92) 97 01/18/20 00:00 Nasal Cannula 2.0 01/18/20 00:00 79 01/18/20 00:00 2.0 01/18/20 00:00 98.8 70 20 131/77 (95) 95 01/17/20 23:30 77 16 118/82 (94) 98 01/17/20 23:00 74 20 129/83 (98) 96 01/17/20 22:30 76 19 97/79 (85) 94 01/17/20 22:00 74 19 135/78 (97) 99 01/17/20 21:00 72 20 129/78 (95) 98 01/17/20 21:00 Nasal Cannula 2.0 01/17/20 20:30 77 20 127/112 (117) 97 01/17/20 20:00 2.0 01/17/20 20:00 77 01/17/20 20:00 99.0 78 18 124/80 (95) 94 01/17/20 19:00 80 18 128/80 (96) 98 01/17/20 18:45 81 19 138/83 (101) 98 01/17/20 18:30 81 20 146/80 (102) 99 01/17/20 18:30 78 01/17/20 18:15 82 19 126/75 (92) 98 01/17/20 18:00 83 21 126/96 (106) 99 01/17/20 17:45 74 12 131/78 (95) 99 01/17/20 17:30 90 19 139/81 (100) 97 01/17/20 17:15 73 19 127/105 (112) 97 01/17/20 17:00 73 19 134/83 (100) 98 01/17/20 16:45 69 17 119/81 (94) 97 01/17/20 16:30 78 15 125/90 (102) 96 01/17/20 16:00 98.6 116 21 107/73 (84) 93 01/17/20 16:00 Nasal Cannula 2.0 01/17/20 16:00 137 01/17/20 16:00 2.0 01/17/20 15:43 125 01/17/20 15:30 122 26 112/92 (99) 95 01/17/20 15:07 125 20 115/81 (92) 96 01/17/20 14:30 124 22 126/100 (109) 99 01/17/20 14:00 125 22 126/100 (109) 99 01/17/20 13:30 129 22 147/119 (128) 99 01/17/20 13:18 139 01/17/20 13:15 98.8 128 19 124/107 (113) 99 01/17/20 13:15 2.0 01/17/20 13:15 Nasal Cannula 2.0 01/17/20 12:46 127 136/81 01/17/20 10:32 148 168/106 Intake and Output 01/17/20 01/18/20 19:00 07:00 Intake Total 365.000 ml 390.00 ml Output Total 600 ml Balance 365.000 ml -210.00 ml Intake Oral 300 ml 360 ml IV Total 65.000 ml 30.00 ml Output Urine Total 600 ml # Voids 3 General Appearance: no acute distress HEENT: normocephalic Respiratory/Chest: chest wall non-tender, lungs clear Cardiovascular: normal peripheral pulses Abdomen: normal bowel sounds Laboratory Tests 01/17/20 18:00: Urine Color Pale yellow, Urine Appearance Clear, Urine pH 7, Urine Specific [place] 1.015, Urine Protein 1+H, Urine Glucose (UA) Negative, Urine Ketones Negative, Urine Blood 1+H, Urine Nitrite Negative, Urine Bilirubin Negative, Urine Urobilinogen Normal, Urine Leukocyte Esterase 1+H, Urine RBC 0-2, Urine WBC 2-4, Urine Squamous Epithelial Cells Few, Urine Bacteria Few, Urine Opiates Screen Negative, Urine Barbiturates Screen Negative, Phencyclidine (PCP) Screen Negative, Urine Amphetamines Screen Negative, Urine Benzodiazepines Screen Negative, Urine Cocaine Screen Negative, Urine Marijuana (THC) Screen Negative 01/18/20 04:50: White Blood Count 10.7, Red Blood Count 5.12, Hemoglobin 14.2, Hematocrit 42.7, Mean Corpuscular Volume 83, Mean Corpuscular Hemoglobin 27.8, Mean Corpuscular Hemoglobin Concent 33.4, Red Cell Distribution Width 12.0, Platelet Count 328, Mean Platelet Volume 6.2L, Neutrophils (%) (Auto) 67.9, Lymphocytes (%) (Auto) 23.0, Monocytes (%) (Auto) 5.6, Eosinophils (%) (Auto) 2.7, Basophils (%) (Auto ) 0.8, Sodium Level 144, Potassium Level 3.9, Chloride Level 105, Carbon Dioxide Level 24, Anion Gap 15, Blood Urea Nitrogen 11, Creatinine 0.8, Estimat Glomerular Filtration Rate > 60, Glucose Level 172H, Hemoglobin A1c 7.6H, Uric Acid 5.6, Calcium Level 9.0, Phosphorus Level 3.3, Magnesium Level 2.3, Total Bilirubin 1.1H, Direct Bilirubin 0.1, Aspartate Amino Transf (AST/SGOT) 14L, Alanine Aminotransferase (ALT/SGPT) 26, Alkaline Phosphatase 84, Troponin I 0.000, C-Reactive Protein, Quantitative 3.8H, Pro-B-Type Natriuretic Peptide 156H, Total Protein 7.0, Albumin 3.3L, Globulin 3.7, Albumin/Globulin Ratio 0.9L , Triglycerides Level 156H, Cholesterol Level 178, LDL Cholesterol 106H, HDL Cholesterol 31L, Cholesterol/HDL Ratio 5.7H, Thyroid Stimulating Hormone (TSH) 2.027, Free Thyroxine 1.02, Free Triiodothyronine 2.5, Digoxin Level 0.6L Current Medications Medications (Trade) Dose Ordered Sig/Jackeline Route PRN Reason Start Time Stop Time Status Last Admin Dose Admin Acetaminophen (Tylenol) 650 mg Q4H PRN ORAL Temp >100.5 01/18/20 01:00 02/17/20 00:59 01/18/20 01:07 Aspirin (Ecotrin) 81 mg DAILY ORAL 01/18/20 09:00 03/03/20 08:59 01/18/20 08:40 Docusate Sodium (Colace) 100 mg THREE TIMES A DAY ORAL 01/18/20 09:00 02/17/20 08:59 01/18/20 08:41 Metoclopramide HCl (Reglan) 10 mg Q6H PRN IVP Nausea & Vomiting 01/17/20 18:15 02/16/20 18:14 Oxymetazoline HCl (Afrin Nasal [place]) 1 spray Q12H PRN NASAL nasal congestion 01/18/20 08:00 04/17/20 07:59 01/18/20 09:48 Pantoprazole (Protonix) 40 mg EVERY 12 HOURS ORAL 01/17/20 21:00 02/16/20 20:59 01/18/20 08:41 Potassium Chloride (K-Dur) 40 meq DAILY ORAL 01/17/20 18:15 04/16/20 18:14 01/18/20 08:41 Dillon Sainz MD Jan 18, 2020 10:15
--- NOTE | 2020-01-18 10:25 | NUR ---
Nurse Note: Pt calm, asleep, no signs of distress. SLIV RT and LT extremities. Pt doing well off Cardizem drip; HR average between 72-76bpm. Denies pain, shortness of breath. Ate all of meal tray. All safety measures met; will continue to monitor.
--- NOTE | 2020-01-18 10:33 | NUR ---
*-* INSURANCE *-* ALL AVAILABLE CLINICALS HAVE BEEN FAXED TO: [facility] ref# [id number] ; Dillon x [phone]
--- NOTE | 2020-01-18 10:48 | NUR ---
CASE MANAGEMENT: REVIEW 59 YEAR OLD FEMALE BIBA FROM HOME CC: SOB x1 DAY . Hx MARIJUANA USE . HTN SI: A-FIB w/RVR . TACHYCARDIA . MORBID OBESITY EKG -- RAPID ATRIAL FIBRILLATION WITH LEFT AXIS DEVIATION T 98.1 HR 168 RR 25 BP 175/110 SAT 99% ROOM AIR DIGOXIN LEVEL 0.6 TOX SCREEN: THC NEG IS: CARDIZEM IV X1 ADENOSINE IV X1 ASA 325MG PO X1 DIGOXIN 0.25MG PO X1 NS IVF BOLUS X1 PATIENT ADMITTED TO ICU 01/17/2020 DCP: PATIENT IS FROM HOME
--- NOTE | 2020-01-18 12:30 | NUR ---
Nurse Note: Pt calm, alert, no signs of distress. VSS, afebrile. Denies pain, shortness of breath. SLIV RT and LT extremities. Ate all of lunch tray. Pt seen by Dr. Zendejas. All safety measures met; will continue to monitor.
--- NOTE | 2020-01-18 12:47 | Cardiac Electrophysiology PN ---
Assessment/Plan Assessment/Plan 1. Atrial fibrillation with rapid ventricular response. Now off Cardizem drip. S/P 0.25 mg of IV digoxin and on Eliquis 5 mg b.i.d. for anticoagulation purposes in view of her female gender and history of hypertension that makes CHADS score of 2. Ruled out for [place]. Echo Nl EF 65% 2. Hypertension. We will maximize Cardizem first. Echocardiogram EF 65% 3. Hypokalemia. Potassium replaced. Subjective Subjective Off Cardizem drip since 8 am. In SR. Echo EF 60% Objective Last 24 Hour Vital Signs Date Time Temp Pulse Resp B/P (MAP) Pulse Ox O2 Delivery O2 Flow Rate FiO2 01/18/20 12:00 Room Air 01/18/20 12:00 98.8 64 20 121/73 (89) 94 01/18/20 12:00 0.5 01/18/20 11:00 68 15 125/87 (100) 96 01/18/20 10:00 70 19 128/78 (95) 92 01/18/20 09:00 75 22 127/73 (91) 97 01/18/20 09:00 70 20 156/98 (117) 98 01/18/20 08:34 0.5 01/18/20 08:00 Room Air 01/18/20 08:00 98.7 70 20 156/98 (117) 98 01/18/20 08:00 71 01/18/20 07:00 64 21 115/75 (88) 93 01/18/20 06:30 69 17 125/73 (90) 95 01/18/20 06:00 69 18 120/75 (90) 92 01/18/20 05:30 64 18 119/64 (82) 95 01/18/20 05:00 64 15 122/78 (93) 97 01/18/20 04:30 64 20 122/82 (95) 93 01/18/20 04:00 Nasal Cannula 2.0 01/18/20 04:00 98.9 73 23 130/80 (97) 92 01/18/20 04:00 2.0 01/18/20 04:00 84 01/18/20 03:30 72 13 124/77 (93) 97 01/18/20 03:00 74 14 126/78 (94) 96 4/15/20 02:30 67 16 110/81 (91) 92 01/18/20 02:00 66 19 119/77 (91) 91 01/18/20 01:30 74 24 105/60 (75) 90 01/18/20 01:00 75 21 120/67 (84) 96 01/18/20 00:30 76 19 117/80 (92) 97 01/18/20 00:00 Nasal Cannula 2.0 01/18/20 00:00 79 01/18/20 00:00 2.0 01/18/20 00:00 98.8 70 20 131/77 (95) 95 01/17/20 23:30 77 16 118/82 (94) 98 01/17/20 23:00 74 20 129/83 (98) 96 01/17/20 22:30 76 19 97/79 (85) 94 01/17/20 22:00 74 19 135/78 (97) 99 01/17/20 21:00 72 20 129/78 (95) 98 01/17/20 21:00 Nasal Cannula 2.0 01/17/20 20:30 77 20 127/112 (117) 97 01/17/20 20:00 2.0 01/17/20 20:00 77 01/17/20 20:00 99.0 78 18 124/80 (95) 94 01/17/20 19:00 80 18 128/80 (96) 98 01/17/20 18:45 81 19 138/83 (101) 98 01/17/20 18:30 81 20 146/80 (102) 99 01/17/20 18:30 78 01/17/20 18:15 82 19 126/75 (92) 98 01/17/20 18:00 83 21 126/96 (106) 99 01/17/20 17:45 74 12 131/78 (95) 99 01/17/20 17:30 90 19 139/81 (100) 97 01/17/20 17:15 73 19 127/105 (112) 97 01/17/20 17:00 73 19 134/83 (100) 98 01/17/20 16:45 69 17 119/81 (94) 97 01/17/20 16:30 78 15 125/90 (102) 96 01/17/20 16:00 98.6 116 21 107/73 (84) 93 01/17/20 16:00 Nasal Cannula 2.0 01/17/20 16:00 137 01/17/20 16:00 2.0 01/17/20 15:43 125 01/17/20 15:30 122 26 112/92 (99) 95 01/17/20 15:07 125 20 115/81 (92) 96 01/17/20 14:30 124 22 126/100 (109) 99 01/17/20 14:00 125 22 126/100 (109) 99 01/17/20 13:30 129 22 147/119 (128) 99 01/17/20 13:18 139 01/17/20 13:15 98.8 128 19 124/107 (113) 99 01/17/20 13:15 2.0 01/17/20 13:15 Nasal Cannula 2.0 01/17/20 12:46 127 136/81 Intake and Output 01/17/20 01/18/20 19:00 07:00 Intake Total 365.000 ml 390.00 ml Output Total 600 ml Balance 365.000 ml -210.00 ml Intake Oral 300 ml 360 ml IV Total 65.000 ml 30.00 ml Output Urine Total 600 ml # Voids 3 Laboratory Tests Test 01/17/20 18:00 01/18/20 04:50 Urine Color Pale yellow Urine Appearance Clear Urine pH 7 (4.5-8.0) Urine Specific [place] 1.015 (1.005-1.035) Urine Protein 1+ (NEGATIVE) H Urine Glucose (UA) Negative (NEGATIVE) Urine Ketones Negative (NEGATIVE) Urine Blood 1+ (NEGATIVE) H Urine Nitrite Negative (NEGATIVE) Urine Bilirubin Negative (NEGATIVE) Urine Urobilinogen Normal MG/DL (0.0-1.0) Urine Leukocyte Esterase 1+ (NEGATIVE) H Urine RBC 0-2 /HPF (0 - 2) Urine WBC 2-4 /HPF (0 - 2) Urine Squamous Epithelial Cells Few /LPF (NONE/OCC) Urine Bacteria Few /HPF (NONE) Urine Opiates Screen Negative (NEGATIVE) Urine Barbiturates Screen Negative (NEGATIVE) Phencyclidine (PCP) Screen Negative (NEGATIVE) Urine Amphetamines Screen Negative (NEGATIVE) Urine Benzodiazepines Screen Negative (NEGATIVE) Urine Cocaine Screen Negative (NEGATIVE) Urine Marijuana (THC) Screen Negative (NEGATIVE) White Blood Count 10.7 K/UL (4.8-10.8) Red Blood Count 5.12 M/UL (4.20-5.40) Hemoglobin 14.2 G/DL (12.0-16.0) Hematocrit 42.7 % (37.0-47.0) Mean Corpuscular Volume 83 FL (80-99) Mean Corpuscular Hemoglobin 27.8 PG (27.0-31.0) Mean Corpuscular Hemoglobin Concent 33.4 G/DL (32.0-36.0) Red Cell Distribution Width 12.0 % (11.6-14.8) Platelet Count 328 K/UL (150-450) Mean Platelet Volume 6.2 FL (6.5-10.1) L Neutrophils (%) (Auto) 67.9 % (45.0-75.0) Lymphocytes (%) (Auto) 23.0 % (20.0-45.0) Monocytes (%) (Auto) 5.6 % (1.0-10.0) Eosinophils (%) (Auto) 2.7 % (0.0-3.0) Basophils (%) (Auto) 0.8 % (0.0-2.0) Sodium Level 144 MMOL/L (136-145) Potassium Level 3.9 MMOL/L (3.5-5.1) Chloride Level 105 MMOL/L (98-107) Carbon Dioxide Level 24 MMOL/L (21-32) Anion Gap 15 mmol/L (5-15) Blood Urea Nitrogen 11 mg/dL (7-18) Creatinine 0.8 MG/DL (0.55-1.30) Estimat Glomerular Filtration Rate > 60 mL/min (>60) Glucose Level 172 MG/DL (74-106) H Hemoglobin A1c 7.6 % (4.3-6.0) H Uric Acid 5.6 MG/DL (2.6-7.2) Calcium Level 9.0 MG/DL (8.5-10.1) Phosphorus Level 3.3 MG/DL (2.5-4.9) Magnesium Level 2.3 MG/DL (1.8-2.4) Total Bilirubin 1.1 MG/DL (0.2-1.0) H Direct Bilirubin 0.1 MG/DL (0.0-0.3) Aspartate Amino Transf (AST/SGOT) 14 U/L (15-37) L Alanine Aminotransferase (ALT/SGPT) 26 U/L (12-78) Alkaline Phosphatase 84 U/L (46-116) Troponin I 0.000 ng/mL (0.000-0.056) C-Reactive Protein, Quantitative 3.8 mg/dL (0.00-0.90) H Pro-B-Type Natriuretic Peptide 156 pg/mL (0-125) H Total Protein 7.0 G/DL (6.4-8.2) Albumin 3.3 G/DL (3.4-5.0) L Globulin 3.7 g/dL Albumin/Globulin Ratio 0.9 (1.0-2.7) L Triglycerides Level 156 MG/DL (30-150) H Cholesterol Level 178 MG/DL (< 200) LDL Cholesterol 106 mg/dL (<100) H HDL Cholesterol 31 MG/DL (40-60) L Cholesterol/HDL Ratio 5.7 (3.3-4.4) H Thyroid Stimulating Hormone (TSH) 2.027 uiU/mL (0.358-3.740) Free Thyroxine 1.02 NG/DL (0.76-1.46) Free Triiodothyronine 2.5 pg/mL (2.3-4.2) Digoxin Level 0.6 NG/ML (0.9-2.0) L Objective HEAD AND NECK: No JVD. LUNGS: Clear. CARDIOVASCULAR: Regular S1 and S2 with no gallop or murmur. ABDOMEN: Soft. EXTREMITIES: No pitting edema. Sim Zendejas MD Jan 18, 2020 12:47
--- NOTE | 2020-01-18 13:43 | NUR ---
STABILIZER OPERATOR NOTE Pt has admitted to ICU on 01/17/2020. SW met w/ pt and obtained information. Pt presents as A&O4x. Pt resides w/ her daughters at [address] [place] [address]. Pt is single, never and has two adult daughters. Pt does not have AD/POA/POLST. Pt is ambulatory w/o DMEs but pt has a walker at home. Pt is independent w/ ADLs. Pt reports that two daughters provide assistance as needed. Pt is the decision maker for herself. Pt is expressing full code. Pt plans to return home upon DC. SW to F/U as needed. Emergency contact: Cecilia Warner (Daughter) [phone] Noel Warner (significant other) [phone]
--- NOTE | 2020-01-18 14:35 | NUR ---
Nurse Note: Pt stable, no signs of distress. Pt stated "I feel something stuck in my throat after taking my scheduled medication." Provided pt with water, jello, apple sauce to help. Pt is verbal, no signs of choking; pt is coughing and is self inducing vomiting. Pt denies chest pain, shortness of breath, O2 sat >97% RA. SCD in place. All safety measures met; will continue to monitor.
--- NOTE | 2020-01-18 15:33 | Nephrology Progress Note ---
Assessment/Plan Problem List: (1) Electrolyte imbalance (2) Rapid atrial fibrillation (3) Hypertension Assessment Electrolyte imbalance Low magnesium and low potassium Obese Marijuana abuser Atrial fibrillation with rapid ventricular rate Hypertension Plan Plan: Per cardiology advice Electrolytes in check Chemistry panels and electrolyte check Urine for analysis and tox screen Keep the blood pressure in check Per orders Subjective ROS Limited/Unobtainable: No Constitutional: Reports: malaise Objective Objective Last 24 Hour Vital Signs Date Time Temp Pulse Resp B/P (MAP) Pulse Ox O2 Delivery O2 Flow Rate FiO2 01/18/20 15:00 70 19 130/88 (102) 99 01/18/20 14:00 79 18 123/92 (102) 98 01/18/20 13:00 82 20 126/88 (101) 98 01/18/20 12:00 Room Air 01/18/20 12:00 98.8 64 20 121/73 (89) 94 01/18/20 12:00 0.5 01/18/20 12:00 64 01/18/20 11:00 68 15 125/87 (100) 96 01/18/20 10:00 70 19 128/78 (95) 92 01/18/20 09:00 75 22 127/73 (91) 97 01/18/20 09:00 70 20 156/98 (117) 98 01/18/20 08:34 0.5 01/18/20 08:00 Room Air 01/18/20 08:00 98.7 70 20 156/98 (117) 98 01/18/20 08:00 71 01/18/20 07:00 64 21 115/75 (88) 93 01/18/20 06:30 69 17 125/73 (90) 95 01/18/20 06:00 69 18 120/75 (90) 92 01/18/20 05:30 64 18 119/64 (82) 95 01/18/20 05:00 64 15 122/78 (93) 97 01/18/20 04:30 64 20 122/82 (95) 93 01/18/20 04:00 Nasal Cannula 2.0 01/18/20 04:00 98.9 73 23 130/80 (97) 92 01/18/20 04:00 2.0 01/18/20 04:00 84 01/18/20 03:30 72 13 124/77 (93) 97 01/18/20 03:00 74 14 126/78 (94) 96 01/18/20 02:30 67 16 110/81 (91) 92 01/18/20 02:00 66 19 119/77 (91) 91 01/18/20 01:30 74 24 105/60 (75) 90 01/18/20 01:00 75 21 120/67 (84) 96 01/18/20 00:30 76 19 117/80 (92) 97 01/18/20 00:00 Nasal Cannula 2.0 01/18/20 00:00 79 01/18/20 00:00 2.0 01/18/20 00:00 98.8 70 20 131/77 (95) 95 01/17/20 23:30 77 16 118/82 (94) 98 01/17/20 23:00 74 20 129/83 (98) 96 01/17/20 22:30 76 19 97/79 (85) 94 01/17/20 22:00 74 19 135/78 (97) 99 01/17/20 21:00 72 20 129/78 (95) 98 01/17/20 21:00 Nasal Cannula 2.0 01/17/20 20:30 77 20 127/112 (117) 97 01/17/20 20:00 2.0 01/17/20 20:00 77 01/17/20 20:00 99.0 78 18 124/80 (95) 94 01/17/20 19:00 80 18 128/80 (96) 98 01/17/20 18:45 81 19 138/83 (101) 98 01/17/20 18:30 81 20 146/80 (102) 99 01/17/20 18:30 78 01/17/20 18:15 82 19 126/75 (92) 98 01/17/20 18:00 83 21 126/96 (106) 99 01/17/20 17:45 74 12 131/78 (95) 99 01/17/20 17:30 90 19 139/81 (100) 97 01/17/20 17:15 73 19 127/105 (112) 97 01/17/20 17:00 73 19 134/83 (100) 98 01/17/20 16:45 69 17 119/81 (94) 97 01/17/20 16:30 78 15 125/90 (102) 96 01/17/20 16:00 98.6 116 21 107/73 (84) 93 01/17/20 16:00 Nasal Cannula 2.0 01/17/20 16:00 137 01/17/20 16:00 2.0 01/17/20 15:43 125 Intake and Output 01/17/20 01/18/20 19:00 07:00 Intake Total 365.000 ml 390.00 ml Output Total 600 ml Balance 365.000 ml -210.00 ml Intake Oral 300 ml 360 ml IV Total 65.000 ml 30.00 ml Output Urine Total 600 ml # Voids 3 Laboratory Tests 01/17/20 18:00: Urine Color Pale yellow, Urine Appearance Clear, Urine pH 7, Urine Specific [place] 1.015, Urine Protein 1+H, Urine Glucose (UA) Negative, Urine Ketones Negative, Urine Blood 1+H, Urine Nitrite Negative, Urine Bilirubin Negative, Urine Urobilinogen Normal, Urine Leukocyte Esterase 1+H, Urine RBC 0-2, Urine WBC 2-4, Urine Squamous Epithelial Cells Few, Urine Bacteria Few, Urine Opiates Screen Negative, Urine Barbiturates Screen Negative, Phencyclidine (PCP) Screen Negative, Urine Amphetamines Screen Negative, Urine Benzodiazepines Screen Negative, Urine Cocaine Screen Negative, Urine Marijuana (THC) Screen Negative 01/18/20 04:50: White Blood Count 10.7, Red Blood Count 5.12, Hemoglobin 14.2, Hematocrit 42.7, Mean Corpuscular Volume 83, Mean Corpuscular Hemoglobin 27.8, Mean Corpuscular Hemoglobin Concent 33.4, Red Cell Distribution Width 12.0, Platelet Count 328, Mean Platelet Volume 6.2L, Neutrophils (%) (Auto) 67.9, Lymphocytes (%) (Auto) 23.0, Monocytes (%) (Auto) 5.6, Eosinophils (%) (Auto) 2.7, Basophils (%) (Auto ) 0.8, Sodium Level 144, Potassium Level 3.9, Chloride Level 105, Carbon Dioxide Level 24, Anion Gap 15, Blood Urea Nitrogen 11, Creatinine 0.8, Estimat Glomerular Filtration Rate > 60, Glucose Level 172H, Hemoglobin A1c 7.6H, Uric Acid 5.6, Calcium Level 9.0, Phosphorus Level 3.3, Magnesium Level 2.3, Total Bilirubin 1.1H, Direct Bilirubin 0.1, Aspartate Amino Transf (AST/SGOT) 14L, Alanine Aminotransferase (ALT/SGPT) 26, Alkaline Phosphatase 84, Troponin I 0.000, C-Reactive Protein, Quantitative 3.8H, Pro-B-Type Natriuretic Peptide 156H, Total Protein 7.0, Albumin 3.3L, Globulin 3.7, Albumin/Globulin Ratio 0.9L , Triglycerides Level 156H, Cholesterol Level 178, LDL Cholesterol 106H, HDL Cholesterol 31L, Cholesterol/HDL Ratio 5.7H, Thyroid Stimulating Hormone (TSH) 2.027, Free Thyroxine 1.02, Free Triiodothyronine 2.5, Digoxin Level 0.6L Height (Feet): 5 Height (Inches): 8.00 Weight (Pounds): 125 General Appearance: no apparent distress Cardiovascular: normal rate, arrhythmia Objective No change Ghulam Cutler MD Jan 18, 2020 15:33
--- NOTE | 2020-01-18 16:35 | NUR ---
Nurse Note: Pt asleep, no signs of distress, RA. Pt no longer coughing d/t pill. SLIV RT and LT extremity; patent. All safety measures met; will continue to monitor.
[2020-01-18] MEDS: dilTIAZem HCl 60mg tab ORAL SCH ×2 (17:34→23:38)
[2020-01-18] MEDS ORDERED: Eliquis 5mg tablet ORAL SCH (18:00)
--- NOTE | 2020-01-18 19:00 | NUR ---
Nurse Note: Pt resting in bed, calm, no signs of acute distress. Pt is RA, VSS, afebrile. SLIV RT hand and LT AC patent. Pt on SCD. Purewick in place; pt kept dry. Purewick changed and urine output total 700cc. Provided body wipes and new linen for pt.Pt ate 70% of dinner; pt has slight difficulty swallowing pills. All safety measures met; endorsed to STALIN Melgar for continuity of care.
--- NOTE | 2020-01-18 19:07 | NUR ---
NURSE NOTES: Received patient from STALIN Suarez. Will continue plan of care.
--- NOTE | 2020-01-18 20:00 | NUR ---
NURSE NOTES: Patient is awake, alert and oriented x4. Self bed bath performed with assist and linens changed. BP:130/102, HR:74, O2:97% on room air and stating no signs of distress. Nasal cannula at bedside when needed. All needs are met at the moment. Safety measures in place; bed low, locked and alarm is on. Will continue plan of care.
--- NOTE | 2020-01-18 22:00 | NUR ---
NURSE NOTES: Patient is comfortable. Is awake and having a snack. States that all needs are met. Vital signs stable.
[2020-01-19] VITALS (11 sets, daily range): BP systolic 108–139; BP diastolic 65–112
--- NOTE | 2020-01-19 | NUR ---
NURSE NOTES: Patient is comfortable. Vital signs stable. All needs are met, she is no sleeping.
--- NOTE | 2020-01-19 02:00 | NUR ---
NURSE NOTES: Patient is awake and on her cell phone. Vital signs stable. All needs are met. Will continue to monitor.
--- NOTE | 2020-01-19 04:00 | NUR ---
NURSE NOTES: Patient is awake and watching tv. Vital signs stable, all needs are met. Patient is comfortable.
--- NOTE | 2020-01-19 04:59 | History and Physical Report ---
DATE OF ADMISSION: 01/17/2020 HISTORY OF PRESENT ILLNESS: The patient admitted to the ICU. She came with atrial fibrillation with rapid ventricular response, on Cardizem drip, with a history of hypertension, came with shortness of breath, chest pain, and also admitted for low potassium and low magnesium. Had admitted to ICU for atrial fibrillation with rapid ventricular response. Heart rate was in the 160s. Patient also got digoxin. Patient also has a history of hypertension, was complaining of chest pain, shortness of breath and palpitations. She was diagnosed with a heart abnormality, but did not follow with the bioinformatics analyst. Patient takes blood pressure medication. Denies chills. Denies fever. Denies nausea, vomiting, or diarrhea. Patient was admitted for atrial fibrillation with rapid ventricular response to the ICU as well as electrolyte imbalance. PAST MEDICAL HISTORY: Significant for hypertension, GERD. PAST SURGICAL HISTORY: None. ALLERGIES: To codeine and morphine. FAMILY HISTORY: Noncontributory. SOCIAL HISTORY: Denies history of smoking. Denies history of alcohol or illicit drugs. MEDICATIONS: Amlodipine, aspirin, and hydrochlorothiazide. REVIEW OF SYSTEMS: HEENT: Denies headaches. Respiratory: Denies cough. Cardiovascular: Reported palpitations. Denies chest pain. Gastrointestinal: Denies nausea, vomiting, or diarrhea. Does have occasional heartburn. Extremities: Denies pain. PROCUREMENT MANAGER: Denies changes in speech pattern. PHYSICAL EXAMINATION: VITAL SIGNS: Temperature is 99.8, pulse 78, blood pressure 121/84. HEENT: PERRLA. NECK: Supple. CHEST: Clear to auscultation. CARDIOVASCULAR: Irregularly irregular. GASTROINTESTINAL: Soft, nontender, nondistended. No organomegaly. EXTREMITIES: No edema. Moves all four extremities. Sensory intact to light touch. Reflexes equal on both sides. LABORATORY DATA: WBC of 11.5, hemoglobin 15.5, and platelets of 328. Sodium 144, potassium 3.9. BUN of 11, creatinine 0.8. Troponin 0. ASSESSMENT AND PLAN: 1. Atrial fibrillation with rapid ventricular response. 2. Low potassium and low magnesium. 3. SOB. I have basically consulted Dr. Zendejas, Dr. Cutler, Dr. Sainz, and Dr. Ba Torres, to rule out infectious etiology as well as for electrolyte imbalance treatment and replacement as well as for the treatment of atrial fibrillation and rapid ventricular response. Antibiotics if any per Dr. Ba Torres. Daisy Kinsey M.D. DR: Karen JOB#: [id number] CC:
[2020-01-19] MEDS: dilTIAZem HCl 60mg tab ORAL SCH (05:40)
--- NOTE | 2020-01-19 05:40 | NUR ---
NURSE NOTES: Neno held this AM, HR decreased as low as 58 on the monitor, current BP: 99/65.
--- NOTE | 2020-01-19 06:10 | NUR ---
NURSE NOTES: Patient transferred to and placed into room 203-1. outdoor emergency care technician placed. Belongings accounted for. Report given to STALIN Fernandes. Orders transferred. Patient is stable.
[2020-01-19] MEDS ORDERED: Oxymetazoline 0.05% Na Spray 30ml NASAL PRN (06:25)
[2020-01-19] MEDS ORDERED: Metoclopramide 10mg/2ml Inj IVP PRN (06:25)
--- NOTE | 2020-01-19 07:10 | NUR ---
HAND-OFF: Report given to Ventura GANT.
[2020-01-19] MEDS: Docusate 100mg cap ORAL SCH ×3 (09:00→18:00)
--- NOTE | 2020-01-19 09:34 | NUR ---
CASE MANAGEMENT:REVIEW 01/19/20 SI: AFIB W/RVR HYPOKALEMIA. HYPOMAGNESIUM 98.2 70 20 133/86 95% ON RA IS: CARDIZEM PO Q6HRS ELIQUIS PO BID ASA PO QD PROTONIC PO QD K-DUR PO QD : NOW ON TELEMETRY UNIT DCP: FROM HOME
[2020-01-19] MEDS: Aspirin EC 81mg tab ORAL SCH (09:41)
[2020-01-19] MEDS: Eliquis 5mg tablet ORAL SCH ×2 (09:41→18:00)
--- NOTE | 2020-01-19 09:58 | Nephrology Progress Note ---
Assessment/Plan Problem List: (1) Electrolyte imbalance (2) Rapid atrial fibrillation (3) Hypertension Assessment Electrolyte imbalance Low magnesium and low potassium Obese Marijuana abuser Atrial fibrillation with rapid ventricular rate Hypertension Plan Plan: Per cardiology advice Electrolytes in check Chemistry panels and electrolyte check Urine for analysis and tox screen Keep the blood pressure in check Per orders Subjective ROS Limited/Unobtainable: No Objective Objective Last 24 Hour Vital Signs Date Time Temp Pulse Resp B/P (MAP) Pulse Ox O2 Delivery O2 Flow Rate FiO2 01/19/20 08:33 Room Air 01/19/20 06:00 73 18 126/112 (117) 96 01/19/20 05:40 62 99/65 01/19/20 05:00 66 22 108/65 (79) 91 01/19/20 04:00 98.2 70 20 133/86 (102) 95 01/19/20 04:00 Room Air 01/19/20 03:16 67 01/19/20 03:00 71 22 124/82 (96) 92 01/19/20 02:00 78 22 129/83 (98) 94 01/19/20 01:00 68 21 131/85 (100) 93 01/19/20 00:00 Room Air 01/19/20 00:00 98.4 72 22 138/82 (100) 93 01/18/20 23:38 76 143/77 01/18/20 23:37 79 01/18/20 23:00 74 22 143/77 (99) 95 01/18/20 22:00 88 22 133/76 (95) 96 01/18/20 21:00 76 25 128/77 (94) 97 01/18/20 20:00 Room Air 01/18/20 20:00 99.8 78 23 130/102 (111) 96 01/18/20 19:25 70 01/18/20 19:00 76 18 124/90 (101) 98 01/18/20 18:00 78 17 121/84 (96) 97 01/18/20 17:34 82 108/62 01/18/20 17:00 70 15 126/88 (101) 99 01/18/20 16:00 Room Air 01/18/20 16:00 68 01/18/20 16:00 98.7 75 19 124/91 (102) 91 01/18/20 16:00 0.5 01/18/20 15:00 70 19 130/88 (102) 99 01/18/20 14:00 79 18 123/92 (102) 98 01/18/20 13:00 82 20 126/88 (101) 98 01/18/20 12:00 Room Air 01/18/20 12:00 98.8 64 20 121/73 (89) 94 01/18/20 12:00 0.5 01/18/20 12:00 64 01/18/20 11:00 68 15 125/87 (100) 96 01/18/20 10:00 70 19 128/78 (95) 92 Intake and Output 01/18/20 01/19/20 19:00 07:00 Intake Total 300 ml Output Total 800 ml 800 ml Balance -800 ml -500 ml Intake Oral 300 ml Output Urine Total 800 ml 800 ml # Voids 2 No labs today Height (Feet): 5 Height (Inches): 8.00 Weight (Pounds): 125 General Appearance: no apparent distress Objective No change Ghulam Cutler MD Jan 19, 2020 09:58
--- NOTE | 2020-01-19 10:39 | Cardiac Electrophysiology PN ---
Assessment/Plan Assessment/Plan 1. Atrial fibrillation with rapid ventricular response. Off Cardizem drip. On Cardizem 60 q 6 and Eliquis 5 mg b.i.d. Her female gender and hypertension makes CHADS score of 2. Ruled out for OR. Echo Nl EF 65% Change to Cardizem CD 240 daily 2. Hypertension. Cardizem CD 240 qd. Echocardiogram EF 65% 3. Hypokalemia. Potassium replaced. Subjective Subjective Transferred out of ICU.No CP or SOB. In SR. Echo EF 60% Objective Last 24 Hour Vital Signs Date Time Temp Pulse Resp B/P (MAP) Pulse Ox O2 Delivery O2 Flow Rate FiO2 01/19/20 08:33 Room Air 01/19/20 06:00 73 18 126/112 (117) 96 01/19/20 05:40 62 99/65 01/19/20 05:00 66 22 108/65 (79) 91 01/19/20 04:00 98.2 70 20 133/86 (102) 95 01/19/20 04:00 Room Air 01/19/20 03:16 67 01/19/20 03:00 71 22 124/82 (96) 92 01/19/20 02:00 78 22 129/83 (98) 94 01/19/20 01:00 68 21 131/85 (100) 93 01/19/20 00:00 Room Air 01/19/20 00:00 98.4 72 22 138/82 (100) 93 01/18/20 23:38 76 143/77 01/18/20 23:37 79 01/18/20 23:00 74 22 143/77 (99) 95 01/18/20 22:00 88 22 133/76 (95) 96 01/18/20 21:00 76 25 128/77 (94) 97 01/18/20 20:00 Room Air 01/18/20 20:00 99.8 78 23 130/102 (111) 96 01/18/20 19:25 70 01/18/20 19:00 76 18 124/90 (101) 98 01/18/20 18:00 78 17 121/84 (96) 97 01/18/20 17:34 82 108/62 01/18/20 17:00 70 15 126/88 (101) 99 01/18/20 16:00 Room Air 01/18/20 16:00 68 01/18/20 16:00 98.7 75 19 124/91 (102) 91 01/18/20 16:00 0.5 01/18/20 15:00 70 19 130/88 (102) 99 01/18/20 14:00 79 18 123/92 (102) 98 01/18/20 13:00 82 20 126/88 (101) 98 01/18/20 12:00 Room Air 01/18/20 12:00 98.8 64 20 121/73 (89) 94 01/18/20 12:00 0.5 01/18/20 12:00 64 01/18/20 11:00 68 15 125/87 (100) 96 Intake and Output 01/18/20 01/19/20 19:00 07:00 Intake Total 300 ml Output Total 800 ml 800 ml Balance -800 ml -500 ml Intake Oral 300 ml Output Urine Total 800 ml 800 ml # Voids 2 Microbiology Date/Time Source Procedure Growth Status 01/17/20 12:50 Rectum - Final NO CARBAPENEM-RESISTANT ENTEROBACTERI... Complete 01/17/20 12:50 Rectum VRE Culture - Final NO VANCOMYCIN RESISTANT ENTEROCOCCUS ... Complete Objective HEAD AND NECK: No JVD. LUNGS: Clear. CARDIOVASCULAR: Regular S1 and S2 with no gallop or murmur. ABDOMEN: Soft. EXTREMITIES: No pitting edema. Sim Zendejas MD Jan 19, 2020 10:39
--- NOTE | 2020-01-19 11:05 | Infectious Diseases Prog Note ---
Assessment/Plan Assessment/Plan IMPRESSION: Resolved leukocytosis Atrial fibrillation with rapid ventricular rate, Hypertension, Diabetes mellitus, Morbid obesity. RECOMMENDATION: Observe off antibiotic. Subjective ROS Limited/Unobtainable: Yes Constitutional: Reports: other - Doing better, tranferred from ICU to telemetry Allergies: Coded Allergies: CODEINE (Unverified Allergy, Unknown, 10/27/19) MORPHINE (Unverified Allergy, Unknown, 01/08/15) Objective Vital Signs Last 24 Hour Vital Signs Date Time Temp Pulse Resp B/P (MAP) Pulse Ox O2 Delivery O2 Flow Rate FiO2 01/19/20 08:33 Room Air 01/19/20 06:00 73 18 126/112 (117) 96 01/19/20 05:40 62 99/65 01/19/20 05:00 66 22 108/65 (79) 91 01/19/20 04:00 98.2 70 20 133/86 (102) 95 01/19/20 04:00 Room Air 01/19/20 03:16 67 01/19/20 03:00 71 22 124/82 (96) 92 01/19/20 02:00 78 22 129/83 (98) 94 01/19/20 01:00 68 21 131/85 (100) 93 01/19/20 00:00 Room Air 01/19/20 00:00 98.4 72 22 138/82 (100) 93 01/18/20 23:38 76 143/77 01/18/20 23:37 79 01/18/20 23:00 74 22 143/77 (99) 95 01/18/20 22:00 88 22 133/76 (95) 96 01/18/20 21:00 76 25 128/77 (94) 97 01/18/20 20:00 Room Air 01/18/20 20:00 99.8 78 23 130/102 (111) 96 01/18/20 19:25 70 01/18/20 19:00 76 18 124/90 (101) 98 01/18/20 18:00 78 17 121/84 (96) 97 01/18/20 17:34 82 108/62 01/18/20 17:00 70 15 126/88 (101) 99 01/18/20 16:00 Room Air 01/18/20 16:00 68 01/18/20 16:00 98.7 75 19 124/91 (102) 91 01/18/20 16:00 0.5 01/18/20 15:00 70 19 130/88 (102) 99 01/18/20 14:00 79 18 123/92 (102) 98 01/18/20 13:00 82 20 126/88 (101) 98 01/18/20 12:00 Room Air 01/18/20 12:00 98.8 64 20 121/73 (89) 94 01/18/20 12:00 0.5 01/18/20 12:00 64 Height (Feet): 5 Height (Inches): 8.00 Weight (Pounds): 125 General Appearance: no acute distress HEENT: mucous membranes moist Respiratory/Chest: lungs clear Cardiovascular: irregularly irregular Abdomen: soft, non tender Extremities: no edema Neurologic/Psychiatric: other - sleeping Microbiology Date/Time Source Procedure Growth Status 01/17/20 12:50 Rectum - Final NO CARBAPENEM-RESISTANT ENTEROBACTERI... Complete 01/17/20 12:50 Rectum VRE Culture - Final NO VANCOMYCIN RESISTANT ENTEROCOCCUS ... Complete Current Medications Medications (Trade) Dose Ordered Sig/Jackeline Route PRN Reason Start Time Stop Time Status Last Admin Dose Admin Acetaminophen (Tylenol) 650 mg Q4H PRN ORAL Temp >100.5 01/19/20 06:23 02/17/20 06:22 Apixaban (Eliquis) 5 mg BID ORAL 01/19/20 09:00 04/17/20 17:59 01/19/20 09:41 Aspirin (Ecotrin) 81 mg DAILY ORAL 01/19/20 09:00 03/03/20 08:59 01/19/20 09:41 Diltiazem HCl (Cardizem CD) 240 mg DAILY ORAL 01/20/20 09:00 02/19/20 08:59 Docusate Sodium (Colace) 100 mg THREE TIMES A DAY ORAL 01/19/20 09:00 02/17/20 08:59 01/19/20 09:00 Metoclopramide HCl (Reglan) 10 mg Q6H PRN IVP Nausea & Vomiting 01/19/20 06:25 02/16/20 06:24 Oxymetazoline HCl (Afrin Nasal [place]) 1 spray Q12H PRN NASAL nasal congestion 01/19/20 06:25 04/17/20 06:24 Pantoprazole (Protonix) 40 mg EVERY 12 HOURS ORAL 01/19/20 09:00 02/16/20 20:59 01/19/20 09:41 Potassium Chloride (K-Dur) 40 meq DAILY ORAL 01/19/20 09:00 04/16/20 18:14 01/19/20 09:42 Ba Torres MD Jan 19, 2020 11:04
--- NOTE | 2020-01-19 11:10 | Pulmonology Progress Note ---
Assessment/Plan Assessment/Plan IMPRESSION: 1. Atrial fibrillation with RVR. 2. Hypertension. 3. Marijuana smoker. DISCUSSION: Rate control with digoxin and Cardizem. Now on tele. I will follow carefully. DC planning per cardiology Dillon Sainz M.D. Subjective Interval Events: None new; comfortable Constitutional: Reports: no symptoms HEENT: Repors: no symptoms Respiratory: Reports: no symptoms Cardiovascular: Reports: no symptoms Allergies: Coded Allergies: CODEINE (Unverified Allergy, Unknown, 10/27/19) MORPHINE (Unverified Allergy, Unknown, 01/08/15) Objective Last 24 Hour Vital Signs Date Time Temp Pulse Resp B/P (MAP) Pulse Ox O2 Delivery O2 Flow Rate FiO2 01/19/20 08:33 Room Air 01/19/20 06:00 73 18 126/112 (117) 96 01/19/20 05:40 62 99/65 01/19/20 05:00 66 22 108/65 (79) 91 01/19/20 04:00 98.2 70 20 133/86 (102) 95 01/19/20 04:00 Room Air 01/19/20 03:16 67 01/19/20 03:00 71 22 124/82 (96) 92 01/19/20 02:00 78 22 129/83 (98) 94 01/19/20 01:00 68 21 131/85 (100) 93 01/19/20 00:00 Room Air 01/19/20 00:00 98.4 72 22 138/82 (100) 93 01/18/20 23:38 76 143/77 01/18/20 23:37 79 01/18/20 23:00 74 22 143/77 (99) 95 01/18/20 22:00 88 22 133/76 (95) 96 01/18/20 21:00 76 25 128/77 (94) 97 01/18/20 20:00 Room Air 01/18/20 20:00 99.8 78 23 130/102 (111) 96 01/18/20 19:25 70 01/18/20 19:00 76 18 124/90 (101) 98 01/18/20 18:00 78 17 121/84 (96) 97 01/18/20 17:34 82 108/62 01/18/20 17:00 70 15 126/88 (101) 99 01/18/20 16:00 Room Air 01/18/20 16:00 68 01/18/20 16:00 98.7 75 19 124/91 (102) 91 01/18/20 16:00 0.5 01/18/20 15:00 70 19 130/88 (102) 99 01/18/20 14:00 79 18 123/92 (102) 98 01/18/20 13:00 82 20 126/88 (101) 98 01/18/20 12:00 Room Air 01/18/20 12:00 98.8 64 20 121/73 (89) 94 01/18/20 12:00 0.5 01/18/20 12:00 64 Intake and Output 01/18/20 01/19/20 19:00 07:00 Intake Total 300 ml Output Total 800 ml 800 ml Balance -800 ml -500 ml Intake Oral 300 ml Output Urine Total 800 ml 800 ml # Voids 2 General Appearance: no acute distress HEENT: normocephalic Respiratory/Chest: chest wall non-tender Cardiovascular: normal peripheral pulses Abdomen: normal bowel sounds Microbiology Date/Time Source Procedure Growth Status 01/17/20 12:50 Rectum - Final NO CARBAPENEM-RESISTANT ENTEROBACTERI... Complete 01/17/20 12:50 Rectum VRE Culture - Final NO VANCOMYCIN RESISTANT ENTEROCOCCUS ... Complete Current Medications Medications (Trade) Dose Ordered Sig/Jackeline Route PRN Reason Start Time Stop Time Status Last Admin Dose Admin Acetaminophen (Tylenol) 650 mg Q4H PRN ORAL Temp >100.5 01/19/20 06:23 02/17/20 06:22 Apixaban (Eliquis) 5 mg BID ORAL 01/19/20 09:00 04/17/20 17:59 01/19/20 09:41 Aspirin (Ecotrin) 81 mg DAILY ORAL 01/19/20 09:00 03/03/20 08:59 01/19/20 09:41 Diltiazem HCl (Cardizem CD) 240 mg DAILY ORAL 01/20/20 09:00 02/19/20 08:59 Docusate Sodium (Colace) 100 mg THREE TIMES A DAY ORAL 01/19/20 09:00 02/17/20 08:59 01/19/20 09:00 Metoclopramide HCl (Reglan) 10 mg Q6H PRN IVP Nausea & Vomiting 01/19/20 06:25 02/16/20 06:24 Oxymetazoline HCl (Afrin Nasal [place]) 1 spray Q12H PRN NASAL nasal congestion 01/19/20 06:25 04/17/20 06:24 Pantoprazole (Protonix) 40 mg EVERY 12 HOURS ORAL 01/19/20 09:00 02/16/20 20:59 01/19/20 09:41 Potassium Chloride (K-Dur) 40 meq DAILY ORAL 01/19/20 09:00 04/16/20 18:14 01/19/20 09:42 Dillon Sainz MD Jan 19, 2020 11:10
--- NOTE | 2020-01-19 11:59 | NUR ---
*-* INSURANCE *-* ALL AVAILABLE CLINICALS HAVE BEEN FAXED TO: [facility] ref# [id number] ; Dillon x 1142
[2020-01-19] MEDS ORDERED: dilTIAZem HCl 60mg tab ORAL SCH (12:00)
--- NOTE | 2020-01-19 19:21 | NUR ---
NURSE NOTES: Received report from STALIN Whitehead. Patient is on bed, awake, alert and oriented x 4. Patient is on cardiac diet-instructed and amenable. court recording monitor is on shows sinus rhythm and no signs and symptoms of respiratory distress noted at this time. Patient is on room air, with no complaints made at the moment. IV site is on right hand g-20 saline lock that is intact and asymptomatic. Patient is ambulatory but standby assist. Safety measures are in placed, call light and bedside table within reach, side rails up x 2, bed alarm is on. Bed in low and locked position. Instructed to call for any assistance needed. Will continue plan of care.
--- NOTE | 2020-01-19 20:26 | General Progress Note ---
Assessment/Plan Problem List: (1) Hypertension ICD Codes: I10 - Essential (primary) hypertension SNOMED: 22702411, 797537404 (2) Rapid atrial fibrillation ICD Codes: I48.91 - Unspecified atrial fibrillation SNOMED: 086844430 (3) Electrolyte imbalance ICD Codes: E87.8 - Other disorders of electrolyte and fluid balance, not elsewhere classified SNOMED: 613262964 (4) Chest pain ICD Codes: R07.9 - Chest pain, unspecified SNOMED: 80996265 Status: progressing Assessment/Plan: a fib w rvr off drip clinically improving reviewed chart and labs lyte abnormality Subjective ROS Limited/Unobtainable: Yes Allergies: Coded Allergies: CODEINE (Unverified Allergy, Unknown, 10/27/19) MORPHINE (Unverified Allergy, Unknown, 01/08/15) Objective Last 24 Hour Vital Signs Date Time Temp Pulse Resp B/P (MAP) Pulse Ox O2 Delivery O2 Flow Rate FiO2 01/19/20 16:00 98.1 78 19 131/78 (95) 97 01/19/20 16:00 81 01/19/20 12:00 84 01/19/20 12:00 98.7 76 18 125/72 (89) 96 01/19/20 08:33 Room Air 01/19/20 08:00 75 01/19/20 08:00 98.0 73 20 129/78 (95) 96 01/19/20 06:00 73 18 126/112 (117) 96 01/19/20 05:40 62 99/65 01/19/20 05:00 66 22 108/65 (79) 91 01/19/20 04:00 98.2 70 20 133/86 (102) 95 01/19/20 04:00 Room Air 01/19/20 03:16 67 01/19/20 03:00 71 22 124/82 (96) 92 01/19/20 02:00 78 22 129/83 (98) 94 01/19/20 01:00 68 21 131/85 (100) 93 01/19/20 00:00 Room Air 01/19/20 00:00 98.4 72 22 138/82 (100) 93 01/18/20 23:38 76 143/77 01/18/20 23:37 79 01/18/20 23:00 74 22 143/77 (99) 95 01/18/20 22:00 88 22 133/76 (95) 96 01/18/20 21:00 76 25 128/77 (94) 97 Intake and Output 01/18/20 01/19/20 19:00 07:00 Intake Total 300 ml Output Total 800 ml 800 ml Balance -800 ml -500 ml Intake Oral 300 ml Output Urine Total 800 ml 800 ml # Voids 2 Height (Feet): 5 Height (Inches): 8.00 Weight (Pounds): 125 Daisy Kinsey MD Jan 19, 2020 20:26
[2020-01-20] VITALS: BP 128/82
[2020-01-20 04:00] VITALS: BP 135/84
[2020-01-20 06:47] LABS: BASOPHILS % (AUTO) 1.1 % (0.0-2.0); EOSINOPHILS % (AUTO) 4.4 % (0.0-3.0); HEMATOCRIT 43.1 % (37.0-47.0); HEMOGLOBIN 14.1 G/DL (12.0-16.0); LYMPHOCYTES % (AUTO) 21.5 % (20.0-45.0); MEAN CORPUSCULAR VOLUME 83 FL (80-99); MONOCYTES % (AUTO) 5.1 % (1.0-10.0); NEUTROPHILS % (AUTO) 67.8 % (45.0-75.0); PLATELET COUNT 298 K/UL (150-450); RED BLOOD COUNT 5.17 M/UL (4.20-5.40); RED CELL DISTRIBUTION WIDTH 12.3 % (11.6-14.8); WHITE BLOOD COUNT 9.8 K/UL (4.8-10.8)
--- NOTE | 2020-01-20 07:30 | NUR ---
HAND-OFF: Report given to STALIN Finnegan. Patient is on bed, on stable condition. Plan of care endorsed.
--- NOTE | 2020-01-20 07:35 | NUR ---
NURSE NOTES: RECEIVED PATIENT A/A/OX4, ABLE TO MAKE THINGS KNOWN. NO C/O DISTRESS OR DISCOMFORT @ THIS TIME. BED IS IN THE LOWEST POSITION. SIDERAILS ARE UP X3, BRAKES AND LOCKED ENGAGED. CALL LIGHT IS WITHIN REACH. WILL CONT TO MONITOR.
[2020-01-20 07:36] LABS: ALANINE AMINOTRANSFERASE 20 U/L (12-78); ALBUMIN 3.3 G/DL (3.4-5.0); ALKALINE PHOSPHATASE 81 U/L (46-116); ANION GAP 10 mmol/L (5-15); ASPARTATE AMINO TRANSFERASE 13 U/L (15-37); BILIRUBIN,TOTAL 0.6 MG/DL (0.2-1.0); BLOOD UREA NITROGEN 11 mg/dL (7-18); CALCIUM 8.9 MG/DL (8.5-10.1); CARBON DIOXIDE 24 MMOL/L (21-32); CHLORIDE 105 MMOL/L (98-107); CREATININE 0.8 MG/DL (0.55-1.30); FERRITIN 213 NG/ML (8-388); PHOSPHORUS 3.2 MG/DL (2.5-4.9); POTASSIUM 4.2 MMOL/L (3.5-5.1); SODIUM 139 MMOL/L (136-145)
--- NOTE | 2020-01-20 08:02 | NUR ---
HAND-OFF: Report given to
[2020-01-20 08:07] VITALS: BP 127/81
[2020-01-20 08:40] VITALS: BP 127/81
[2020-01-20] MEDS: Eliquis 5mg tablet ORAL SCH (08:40)
[2020-01-20] MEDS: Docusate 100mg cap ORAL SCH (08:40)
[2020-01-20] MEDS: Aspirin EC 81mg tab ORAL SCH (08:40)
--- NOTE | 2020-01-20 08:53 | NUR ---
CASE MANAGEMENT:REVIEW 01/20/20 SI: AFIB W/RVR HYPOKALEMIA. HYPOMAGNESIUM 98.1 71 20 127/81 99% ON RA GLUCOSE+171 IS: CARDIZEM PO QD ELIQUIS PO BID ASA PO QD PROTONIC PO QD K-DUR PO QD : TELEMETRY UNIT DCP: FROM HOME
[2020-01-20] MEDS ORDERED: dilTIAZem HCl CD 240mg cap ORAL SCH (09:00)
--- NOTE | 2020-01-20 10:11 | NUR ---
*-* INSURANCE *-* UPDATED CLINICALS HAVE BEEN FAXED TO: [facility] ref# [id number] ; Dillon x 1142
--- NOTE | 2020-01-20 10:17 | Nephrology Progress Note ---
Assessment/Plan Problem List: (1) Electrolyte imbalance (2) Rapid atrial fibrillation (3) Hypertension Assessment Electrolyte imbalance Low magnesium and low potassium Obese Marijuana abuser Atrial fibrillation with rapid ventricular rate Hypertension Plan Plan: Per cardiology advice Electrolytes in check Chemistry panels and electrolyte check Urine for analysis and tox screen Keep the blood pressure in check Per orders Subjective ROS Limited/Unobtainable: No Objective Objective Last 24 Hour Vital Signs Date Time Temp Pulse Resp B/P (MAP) Pulse Ox O2 Delivery O2 Flow Rate FiO2 01/20/20 09:10 Room Air 01/20/20 08:40 71 127/81 01/20/20 08:07 98.1 71 20 127/81 (96) 99 01/20/20 04:00 98.5 59 19 135/84 (101) 97 01/20/20 04:00 59 01/20/20 00:00 98.1 60 18 128/82 (97) 95 01/20/20 00:00 66 01/19/20 23:01 Room Air 01/19/20 20:00 67 01/19/20 20:00 99.5 69 18 139/96 (110) 95 01/19/20 16:00 98.1 78 19 131/78 (95) 97 01/19/20 16:00 81 01/19/20 12:00 84 01/19/20 12:00 98.7 76 18 125/72 (89) 96 Laboratory Tests 01/20/20 05:33: White Blood Count 9.8, Red Blood Count 5.17, Hemoglobin 14.1, Hematocrit 43.1, Mean Corpuscular Volume 83, Mean Corpuscular Hemoglobin 27.2, Mean Corpuscular Hemoglobin Concent 32.6, Red Cell Distribution Width 12.3, Platelet Count 298, Mean Platelet Volume 6.6, Neutrophils (%) (Auto) 67.8, Lymphocytes (%) (Auto) 21.5, Monocytes (%) (Auto) 5.1, Eosinophils (%) (Auto) 4.4H, Basophils (%) (Auto ) 1.1, Sodium Level 139, Potassium Level 4.2, Chloride Level 105, Carbon Dioxide Level 24, Anion Gap 10, Blood Urea Nitrogen 11, Creatinine 0.8, Estimat Glomerular Filtration Rate > 60, Glucose Level 171H, Uric Acid 4.3, Calcium Level 8.9, Phosphorus Level 3.2, Magnesium Level 2.2, Ferritin 213, Total Bilirubin 0.6, Aspartate Amino Transf (AST/SGOT) 13L, Alanine Aminotransferase ( ALT/SGPT) 20, Alkaline Phosphatase 81, Lactate Dehydrogenase 375H, Total Protein 6.7, Albumin 3.3L, Globulin 3.4, Albumin/Globulin Ratio 1.0 Height (Feet): 5 Height (Inches): 8.00 Weight (Pounds): 350 General Appearance: no apparent distress Objective No change Ghulam Cutler MD Jan 20, 2020 10:17
--- NOTE | 2020-01-20 10:27 | Pulmonology Progress Note ---
Assessment/Plan Assessment/Plan IMPRESSION: 1. Atrial fibrillation with RVR. 2. Hypertension. 3. Marijuana smoker. DISCUSSION: Rate control with digoxin and Cardizem. Now on tele. I will follow carefully. DC planning per cardiology Dillon Sainz M.D. Subjective Interval Events: None new Constitutional: Reports: no symptoms HEENT: Repors: no symptoms Respiratory: Reports: no symptoms Cardiovascular: Reports: no symptoms Gastrointestinal/Abdominal: Reports: no symptoms Allergies: Coded Allergies: CODEINE (Unverified Allergy, Unknown, 10/27/19) MORPHINE (Unverified Allergy, Unknown, 01/08/15) Objective Last 24 Hour Vital Signs Date Time Temp Pulse Resp B/P (MAP) Pulse Ox O2 Delivery O2 Flow Rate FiO2 01/20/20 09:10 Room Air 01/20/20 08:40 71 127/81 01/20/20 08:07 98.1 71 20 127/81 (96) 99 01/20/20 04:00 98.5 59 19 135/84 (101) 97 01/20/20 04:00 59 01/20/20 00:00 98.1 60 18 128/82 (97) 95 01/20/20 00:00 66 01/19/20 23:01 Room Air 01/19/20 20:00 67 01/19/20 20:00 99.5 69 18 139/96 (110) 95 01/19/20 16:00 98.1 78 19 131/78 (95) 97 01/19/20 16:00 81 01/19/20 12:00 84 01/19/20 12:00 98.7 76 18 125/72 (89) 96 General Appearance: no acute distress HEENT: normocephalic Respiratory/Chest: chest wall non-tender, lungs clear Cardiovascular: normal peripheral pulses Abdomen: normal bowel sounds Microbiology Date/Time Source Procedure Growth Status 01/17/20 12:50 Nasal Nares MRSA Culture - Final NO METHICILLIN RESISTANT STAPH AUREUS... Complete 01/17/20 12:50 Rectum - Final NO CARBAPENEM-RESISTANT ENTEROBACTERI... Complete 01/17/20 12:50 Rectum VRE Culture - Final NO VANCOMYCIN RESISTANT ENTEROCOCCUS ... Complete Laboratory Tests 01/20/20 05:33: White Blood Count 9.8, Red Blood Count 5.17, Hemoglobin 14.1, Hematocrit 43.1, Mean Corpuscular Volume 83, Mean Corpuscular Hemoglobin 27.2, Mean Corpuscular Hemoglobin Concent 32.6, Red Cell Distribution Width 12.3, Platelet Count 298, Mean Platelet Volume 6.6, Neutrophils (%) (Auto) 67.8, Lymphocytes (%) (Auto) 21.5, Monocytes (%) (Auto) 5.1, Eosinophils (%) (Auto) 4.4H, Basophils (%) (Auto ) 1.1, Sodium Level 139, Potassium Level 4.2, Chloride Level 105, Carbon Dioxide Level 24, Anion Gap 10, Blood Urea Nitrogen 11, Creatinine 0.8, Estimat Glomerular Filtration Rate > 60, Glucose Level 171H, Uric Acid 4.3, Calcium Level 8.9, Phosphorus Level 3.2, Magnesium Level 2.2, Ferritin 213, Total Bilirubin 0.6, Aspartate Amino Transf (AST/SGOT) 13L, Alanine Aminotransferase ( ALT/SGPT) 20, Alkaline Phosphatase 81, Lactate Dehydrogenase 375H, Total Protein 6.7, Albumin 3.3L, Globulin 3.4, Albumin/Globulin Ratio 1.0 Current Medications Medications (Trade) Dose Ordered Sig/Jackeline Route PRN Reason Start Time Stop Time Status Last Admin Dose Admin Acetaminophen (Tylenol) 650 mg Q4H PRN ORAL Temp >100.5 01/19/20 06:23 02/17/20 06:22 Apixaban (Eliquis) 5 mg BID ORAL 01/19/20 09:00 04/17/20 17:59 01/20/20 08:40 Aspirin (Ecotrin) 81 mg DAILY ORAL 01/19/20 09:00 03/03/20 08:59 01/20/20 08:40 Diltiazem HCl (Cardizem CD) 240 mg DAILY ORAL 01/20/20 09:00 02/19/20 08:59 01/20/20 08:40 Docusate Sodium (Colace) 100 mg THREE TIMES A DAY ORAL 01/19/20 09:00 02/17/20 08:59 01/19/20 13:00 Metoclopramide HCl (Reglan) 10 mg Q6H PRN IVP Nausea & Vomiting 01/19/20 06:25 02/16/20 06:24 Oxymetazoline HCl (Afrin Nasal [place]) 1 spray Q12H PRN NASAL nasal congestion 01/19/20 06:25 04/17/20 06:24 Pantoprazole (Protonix) 40 mg EVERY 12 HOURS ORAL 01/19/20 09:00 02/16/20 20:59 01/20/20 08:40 Potassium Chloride (K-Dur) 40 meq DAILY ORAL 01/19/20 09:00 04/16/20 18:14 01/20/20 08:45 Dillon Sainz MD Jan 20, 2020 10:27
--- NOTE | 2020-01-20 11:02 | Infectious Diseases Prog Note ---
Assessment/Plan Assessment/Plan IMPRESSION: Resolved leukocytosis Atrial fibrillation with rapid ventricular rate,PAF Hypertension, Diabetes mellitus, Morbid obesity. RECOMMENDATION: Observe off antibiotic. Subjective ROS Limited/Unobtainable: No Constitutional: Reports: no symptoms Respiratory: Reports: no symptoms Cardiovascular: Reports: no symptoms Gastrointestinal/Abdominal: Reports: no symptoms Allergies: Coded Allergies: CODEINE (Unverified Allergy, Unknown, 10/27/19) MORPHINE (Unverified Allergy, Unknown, 01/08/15) Objective Vital Signs Last 24 Hour Vital Signs Date Time Temp Pulse Resp B/P (MAP) Pulse Ox O2 Delivery O2 Flow Rate FiO2 01/20/20 09:10 Room Air 01/20/20 08:40 71 127/81 01/20/20 08:07 98.1 71 20 127/81 (96) 99 01/20/20 04:00 98.5 59 19 135/84 (101) 97 01/20/20 04:00 59 01/20/20 00:00 98.1 60 18 128/82 (97) 95 01/20/20 00:00 66 01/19/20 23:01 Room Air 01/19/20 20:00 67 01/19/20 20:00 99.5 69 18 139/96 (110) 95 01/19/20 16:00 98.1 78 19 131/78 (95) 97 01/19/20 16:00 81 01/19/20 12:00 84 01/19/20 12:00 98.7 76 18 125/72 (89) 96 Height (Feet): 5 Height (Inches): 8.00 Weight (Pounds): 350 General Appearance: no acute distress HEENT: mucous membranes moist Respiratory/Chest: lungs clear Cardiovascular: normal rate Abdomen: soft, non tender Extremities: no edema Neurologic/Psychiatric: no motor/sensory deficits, alert, oriented x 3, responsive Microbiology Date/Time Source Procedure Growth Status 01/17/20 12:50 Nasal Nares MRSA Culture - Final NO METHICILLIN RESISTANT STAPH AUREUS... Complete 01/17/20 12:50 Rectum - Final NO CARBAPENEM-RESISTANT ENTEROBACTERI... Complete 01/17/20 12:50 Rectum VRE Culture - Final NO VANCOMYCIN RESISTANT ENTEROCOCCUS ... Complete Laboratory Tests Test 01/20/20 05:33 White Blood Count 9.8 K/UL (4.8-10.8) Red Blood Count 5.17 M/UL (4.20-5.40) Hemoglobin 14.1 G/DL (12.0-16.0) Hematocrit 43.1 % (37.0-47.0) Mean Corpuscular Volume 83 FL (80-99) Mean Corpuscular Hemoglobin 27.2 PG (27.0-31.0) Mean Corpuscular Hemoglobin Concent 32.6 G/DL (32.0-36.0) Red Cell Distribution Width 12.3 % (11.6-14.8) Platelet Count 298 K/UL (150-450) Mean Platelet Volume 6.6 FL (6.5-10.1) Neutrophils (%) (Auto) 67.8 % (45.0-75.0) Lymphocytes (%) (Auto) 21.5 % (20.0-45.0) Monocytes (%) (Auto) 5.1 % (1.0-10.0) Eosinophils (%) (Auto) 4.4 % (0.0-3.0) H Basophils (%) (Auto) 1.1 % (0.0-2.0) Sodium Level 139 MMOL/L (136-145) Potassium Level 4.2 MMOL/L (3.5-5.1) Chloride Level 105 MMOL/L (98-107) Carbon Dioxide Level 24 MMOL/L (21-32) Anion Gap 10 mmol/L (5-15) Blood Urea Nitrogen 11 mg/dL (7-18) Creatinine 0.8 MG/DL (0.55-1.30) Estimat Glomerular Filtration Rate > 60 mL/min (>60) Glucose Level 171 MG/DL (74-106) H Uric Acid 4.3 MG/DL (2.6-7.2) Calcium Level 8.9 MG/DL (8.5-10.1) Phosphorus Level 3.2 MG/DL (2.5-4.9) Magnesium Level 2.2 MG/DL (1.8-2.4) Ferritin 213 NG/ML (8-388) Total Bilirubin 0.6 MG/DL (0.2-1.0) Aspartate Amino Transf (AST/SGOT) 13 U/L (15-37) L Alanine Aminotransferase (ALT/SGPT) 20 U/L (12-78) Alkaline Phosphatase 81 U/L (46-116) Lactate Dehydrogenase 375 U/L (81-234) H Total Protein 6.7 G/DL (6.4-8.2) Albumin 3.3 G/DL (3.4-5.0) L Globulin 3.4 g/dL Albumin/Globulin Ratio 1.0 (1.0-2.7) Current Medications Medications (Trade) Dose Ordered Sig/Jackeline Route PRN Reason Start Time Stop Time Status Last Admin Dose Admin Acetaminophen (Tylenol) 650 mg Q4H PRN ORAL Temp >100.5 01/19/20 06:23 02/17/20 06:22 Apixaban (Eliquis) 5 mg BID ORAL 01/19/20 09:00 04/17/20 17:59 01/20/20 08:40 Aspirin (Ecotrin) 81 mg DAILY ORAL 01/19/20 09:00 03/03/20 08:59 01/20/20 08:40 Diltiazem HCl (Cardizem CD) 240 mg DAILY ORAL 01/20/20 09:00 02/19/20 08:59 01/20/20 08:40 Docusate Sodium (Colace) 100 mg THREE TIMES A DAY ORAL 01/19/20 09:00 02/17/20 08:59 01/19/20 13:00 Metoclopramide HCl (Reglan) 10 mg Q6H PRN IVP Nausea & Vomiting 01/19/20 06:25 02/16/20 06:24 Oxymetazoline HCl (Afrin Nasal [place]) 1 spray Q12H PRN NASAL nasal congestion 01/19/20 06:25 04/17/20 06:24 Pantoprazole (Protonix) 40 mg EVERY 12 HOURS ORAL 01/19/20 09:00 02/16/20 20:59 01/20/20 08:40 Potassium Chloride (K-Dur) 40 meq DAILY ORAL 01/19/20 09:00 04/16/20 18:14 01/20/20 08:45 Ba Torres MD Jan 20, 2020 11:02
--- NOTE | 2020-01-20 11:18 | Cardiac Electrophysiology PN ---
Assessment/Plan Assessment/Plan 1. Atrial fibrillation with rapid ventricular response. Off Cardizem drip. On Cardizem 60 q 6 and Eliquis 5 mg b.i.d.as female gender and hypertension makes CHADS score of 2. Ruled out for NC. Echo Nl EF 65% . On Cardizem CD 240 daily 2. Hypertension. Cardizem CD 240 qd. Echo EF 65% 3. Hypokalemia. Potassium replaced. Subjective Subjective No CP or SOB. In SR. EF 60%. DC in progress Objective Last 24 Hour Vital Signs Date Time Temp Pulse Resp B/P (MAP) Pulse Ox O2 Delivery O2 Flow Rate FiO2 01/20/20 09:10 Room Air 01/20/20 08:40 71 127/81 01/20/20 08:07 98.1 71 20 127/81 (96) 99 01/20/20 04:00 98.5 59 19 135/84 (101) 97 01/20/20 04:00 59 01/20/20 00:00 98.1 60 18 128/82 (97) 95 01/20/20 00:00 66 01/19/20 23:01 Room Air 01/19/20 20:00 67 01/19/20 20:00 99.5 69 18 139/96 (110) 95 01/19/20 16:00 98.1 78 19 131/78 (95) 97 01/19/20 16:00 81 01/19/20 12:00 84 01/19/20 12:00 98.7 76 18 125/72 (89) 96 Laboratory Tests Test 01/20/20 05:33 White Blood Count 9.8 K/UL (4.8-10.8) Red Blood Count 5.17 M/UL (4.20-5.40) Hemoglobin 14.1 G/DL (12.0-16.0) Hematocrit 43.1 % (37.0-47.0) Mean Corpuscular Volume 83 FL (80-99) Mean Corpuscular Hemoglobin 27.2 PG (27.0-31.0) Mean Corpuscular Hemoglobin Concent 32.6 G/DL (32.0-36.0) Red Cell Distribution Width 12.3 % (11.6-14.8) Platelet Count 298 K/UL (150-450) Mean Platelet Volume 6.6 FL (6.5-10.1) Neutrophils (%) (Auto) 67.8 % (45.0-75.0) Lymphocytes (%) (Auto) 21.5 % (20.0-45.0) Monocytes (%) (Auto) 5.1 % (1.0-10.0) Eosinophils (%) (Auto) 4.4 % (0.0-3.0) H Basophils (%) (Auto) 1.1 % (0.0-2.0) Sodium Level 139 MMOL/L (136-145) Potassium Level 4.2 MMOL/L (3.5-5.1) Chloride Level 105 MMOL/L (98-107) Carbon Dioxide Level 24 MMOL/L (21-32) Anion Gap 10 mmol/L (5-15) Blood Urea Nitrogen 11 mg/dL (7-18) Creatinine 0.8 MG/DL (0.55-1.30) Estimat Glomerular Filtration Rate > 60 mL/min (>60) Glucose Level 171 MG/DL (74-106) H Uric Acid 4.3 MG/DL (2.6-7.2) Calcium Level 8.9 MG/DL (8.5-10.1) Phosphorus Level 3.2 MG/DL (2.5-4.9) Magnesium Level 2.2 MG/DL (1.8-2.4) Ferritin 213 NG/ML (8-388) Total Bilirubin 0.6 MG/DL (0.2-1.0) Aspartate Amino Transf (AST/SGOT) 13 U/L (15-37) L Alanine Aminotransferase (ALT/SGPT) 20 U/L (12-78) Alkaline Phosphatase 81 U/L (46-116) Lactate Dehydrogenase 375 U/L (81-234) H Total Protein 6.7 G/DL (6.4-8.2) Albumin 3.3 G/DL (3.4-5.0) L Globulin 3.4 g/dL Albumin/Globulin Ratio 1.0 (1.0-2.7) Microbiology Date/Time Source Procedure Growth Status 01/17/20 12:50 Nasal Nares MRSA Culture - Final NO METHICILLIN RESISTANT STAPH AUREUS... Complete 01/17/20 12:50 Rectum - Final NO CARBAPENEM-RESISTANT ENTEROBACTERI... Complete 01/17/20 12:50 Rectum VRE Culture - Final NO VANCOMYCIN RESISTANT ENTEROCOCCUS ... Complete Objective HEAD AND NECK: No JVD. LUNGS: Clear. CARDIOVASCULAR: Regular S1 and S2 with no gallop or murmur. ABDOMEN: Soft. EXTREMITIES: No pitting edema. Sim Zendejas MD Jan 20, 2020 11:18
[2020-01-20] MEDS ORDERED: Tubing IV Secondary IV ONE (12:46)
[2020-01-20] MEDS ORDERED: NS 275ml ONE (12:46)
--- NOTE | 2020-01-22 13:15 | Discharge Summary ---
Discharge Summary Discharge Summary _ DATE OF ADMISSION: 01/17/2020 DATE OF DISCHARGE: 01/20/2020 DISCHARGED BY: Dr. Daisy Cotto CONSULTANTS: Dr. Sim Cutler BRIEF HOSPITAL COURSE: Patient is a 59-year-old female, with history of hypertension, presented for evaluation of chest pain and shortness of breath. Symptoms started in the morning of presentation to ED. She reported feeling increasingly nervous along with palpitations. She was recently seen by her PMD for an annual physical and was diagnosed with a heart abnormality. She was referred to a lens generating machine tender but has not yet been evaluated. She has been compliant with amlodipine, hydrochlorothiazide and aspirin. She denied any recent fever, chills, cough, vomiting, diarrhea, recent travel or known sick contacts. She has been in isolation per [facility] and her department guideline due to COVID-19 pandemic. She is unsure about her new cardiac diagnosis. She is a former smoker. Upon evaluation at ED, she was tachycardic with irregularly irregular rhythm consistent with atrial fibrillation. She was given IV Cardizem bolus and was loaded with oral Cardizem. Blood work showed WBC elevated to 11.5. Hemoglobin hematocrit were stable. Potassium level 3.3. Phosphorus 3.1. Magnesium 1.7. Troponin was negative. proBNP 9. Chest x-ray did not show any obvious infiltrate. Patient remained in atrial fibrillation despite bolus of IV Cardizem x2 and oral Cardizem load. She was eventually started on Cardizem drip. She was also given 0.25 mg of IV digoxin. She was then admitted to ICU. She underwent cardiac evaluation. Patient has a chads score of 2. She was started on Eliquis 5 mg twice daily for anticoagulation. She was given potassium supplements. She was continued on her antihypertensives. Patient had leukocytosis. She was afebrile. She was observed off antibiotics. Urine toxicology negative. She was eventually taken off Cardizem drip. Patient was in sinus rhythm. Echocardiogram done showed normal EF of 65%. She was eventually given Cardizem CD 240 mg p.o. Leukocytosis eventually resolved. There was no sign of infection. Heart rate remained in sinus. She was eventually cleared for discharge home. FINAL DIAGNOSES: Atrial fibrillation with RVR Hypertension Hypokalemia Hypomagnesemia Resolved leukocytosis Morbid obesity Diabetes mellitus Marijuana smoker DISPOSITION: Patient was discharged home. DISCHARGE MEDICATIONS: Refer to Discharge Medication List. DISCHARGE INSTRUCTIONS: Follow-up in a week. I have been assigned to complete a discharge summary on this account, I was not involved with the patient's management.--ELIZABETH Simmons Jacqueline Robles NP Jan 22, 2020 13:14
--- NOTE | 2020-01-23 15:11 | NUR ---
*-* INSURANCE *-* DISCHARGE SUMMARY HAS BEEN FAXED TO: [facility] ref# [id number] ; [place] # [phone]
== END 2020-01-20 12:47 | disposition home or self-care (01) | DRG 201 ==
LOC: EDBD 07:28 → EMR 07:41 → ICU 09:38 → EDBEDREQ 10:02 → EDBEDREQSVC 10:02 → EDBEDREQ 10:12 → EDBEDREQSVC 10:12 → EDBEDREQ 11:06 → 2E 01-19 05:54
DX: I48.91 Unspecified atrial fibrillation (principal); E87.6 Hypokalemia; E66.01 Morbid (severe) obesity due to excess calories; Z88.6 Allergy status to analgesic agent; I10 Essential (primary) hypertension; E83.42 Hypomagnesemia; E11.9 Type 2 diabetes mellitus without complications; F12.90 Cannabis use, unspecified, uncomplicated; Z87.891 Personal history of nicotine dependence; Z68.41 Body mass index [BMI] 40.0-44.9, adult
CPT/HCPCS: 36415; 71045; 80053; 80061; 80162; 80307; 81001; 82248; 82728; 83036; 83615; 83735; 83880; 84100; 84439; 84443; 84481; 84484; 84550; 85025; 86140; 87081; 93005; 93306; 96361; 96365; 96366; 96368; 96375; 96376; 99291; J7030; J8499

== ENCOUNTER 2020-02-03 06:06 | Emergency (ER) | payer OTHER ==
[~2020-02-03] VITALS: Ht 170.2 cm; Wt 106.6 kg
[~2020-02-03 06:06] MED LIST changes: +ASPIR 8181 MG ORAL
[2020-02-03 06:15] VITALS: BP 154/122
--- NOTE | 2020-02-03 06:15 | NUR ---
ED Nurse Note: Pt brought into ED from home by NATHEN RA 94 for c/o palpitations/afib onset at 0500 this morning. Pt states the palpitations woke her up suddenly. Pt reports mild chest pain, denies SOB, n/v, fever or headache. Pt is aaox4, breathing is normal and unlabored. Pt connected to front end application developer and ERMD bedside. atmospheric technician bedside for EKG. Pt was given 500cc NS en route by LAFD and IV already established on L AC.
[2020-02-03] MEDS: Metoprolol Tartrate 5mg/5ml Inj IVP SCH ×3 (06:22→06:43)
--- NOTE | 2020-02-03 06:30 | NUR ---
ED Nurse Note: Pt ambulated to restroom with steady gait. Urine specimen collected and sent to lab.
[2020-02-03] MEDS ORDERED: AFRIN NASAL SPR30 ML NASAL (06:34)
--- NOTE | 2020-02-03 06:50 | NUR ---
ED Nurse Note: Pt own medications taken and locked in ER med box.
[2020-02-03] MEDS ORDERED: dilTIAZem HCl 25mg/5ml Inj IVP ONE (07:15)
[2020-02-03 07:18] LABS: BASOPHILS % (AUTO) 1.2 % (0.0-2.0); EOSINOPHILS % (AUTO) 3.9 % (0.0-3.0); HEMATOCRIT 48.4 % (37.0-47.0); HEMOGLOBIN 15.8 G/DL (12.0-16.0); LYMPHOCYTES % (AUTO) 28.1 % (20.0-45.0); MEAN CORPUSCULAR VOLUME 83 FL (80-99); MONOCYTES % (AUTO) 6.3 % (1.0-10.0); NEUTROPHILS % (AUTO) 60.6 % (45.0-75.0); PLATELET COUNT 382 K/UL (150-450); RED BLOOD COUNT 5.85 M/UL (4.20-5.40); RED CELL DISTRIBUTION WIDTH 11.8 % (11.6-14.8); WHITE BLOOD COUNT 10.7 K/UL (4.8-10.8)
--- NOTE | 2020-02-03 07:20 | NUR ---
HAND-OFF: Report given to STALIN Taylor.
--- NOTE | 2020-02-03 07:20 | NUR ---
ED Nurse Note: Pt HR/BP has decreased after receiving medications ordered by ERMD. Pt is in no acute distress, connected to ekg monitor.
[2020-02-03 07:31] LABS: ANION GAP 10 mmol/L (5-15); BLOOD UREA NITROGEN 11 mg/dL (7-18); CALCIUM 9.3 MG/DL (8.5-10.1); CARBON DIOXIDE 32 MMOL/L (21-32); CHLORIDE 103 MMOL/L (98-107); CREATININE 0.8 MG/DL (0.55-1.30); POTASSIUM 2.8 MMOL/L (3.5-5.1); SODIUM 145 MMOL/L (136-145)
--- NOTE | 2020-02-03 07:33 | Emergency Room Report ---
History of Present Illness General Chief Complaint: Palpitations Source: Patient Present Illness HPI 59-year-old female presents to ED for palpitations. Started this morning. Brought in by home home by EMS. Heart rate in the 180s. Patient notes that she was admitted for this just recently here. Denies chest pain denies shortness of breath. Denies fevers or chills. No other aggravating relieving factors. Denies any other associated symptoms Allergies: Coded Allergies: CODEINE (Unverified Allergy, Unknown, 10/27/19) MORPHINE (Unverified Allergy, Unknown, 01/08/15) COVID-19 Screening Contact w/high risk pt: No Recent Travel to affected area: No Experienced COVID-19 symptoms?: No Patient History Past Medical History: DM, HTN, GERD Past Surgical History: none Pertinent Family History: none Social History: Denies: smoking, alcohol use, drug use Now: No Immunizations: UTD Reviewed Nursing Documentation: PMH: Agreed; PSxH: Agreed Nursing Documentation-PMH Hx Cardiac Problems: Yes Hx Hypertension: Yes Hx Diabetes: Yes - Prediabetes Hx Cancer: No Hx Gastrointestinal Problems: Yes Hx Neurological Problems: No Review of Systems All Other Systems: negative except mentioned in HPI Physical Exam Vital Signs Date Time Temp Pulse Resp B/P (MAP) Pulse Ox O2 Delivery O2 Flow Rate FiO2 02/03/20 06:04 115 92 Room Air 02/03/20 06:15 98.6 20 154/122 Sp02 EP Interpretation: reviewed, normal General Appearance: no apparent distress, alert, GCS 15, non-toxic, obese Head: normocephalic, atraumatic Eyes: bilateral eye normal inspection, bilateral eye PERRL ENT: hearing grossly normal, normal pharynx, no angioedema, normal voice Neck: full range of motion, supple/symm/no masses Respiratory: chest non-tender, lungs clear, normal breath sounds, speaking full sentences Cardiovascular #1: no edema, tachycardia Cardiovascular #2: 2+ carotid (R), 2+ carotid (L), 2+ radial (R), 2+ radial (L) , 2+ dorsalis pedis (R), 2+ dorsalis pedis (L) Gastrointestinal: normal bowel sounds, non tender, soft, non-distended, no guarding, no rebound Rectal: deferred Genitourinary: normal inspection, no CVA tenderness Musculoskeletal: back normal, normal range of motion, gait/station normal, non- tender Neurologic: alert, motor strength/tone normal, oriented x3, sensory intact, responsive, speech normal Psychiatric: judgement/insight normal, memory normal, mood/affect normal, no suicidal/homicidal ideation Reflexes: 3+ bicep (R), 3+ bicep (L), 3+ tricep (R), 3+ tricep (L), 3+ knee (R) , 3+ knee (L) Lymphatic: no adenopathy Procedures Critical Care Time Critical Care Time i. I feel this is a highly complex case requiring extensive working including EKG/Rhythm strip, Xray/CT/US, Blood/urine lab work, repeat exams while in ED, and administration of strong opiates/narcotics for pain control, admission to hospital or close patient follow up. Total time: 60 min bedside evaluation and treatment excludes procedures (EKG). Reason for critical care: afib with RVR Possible complications: hypotension, hypertension, PR, shock, arrhythmias, metabolic acidosis, end organ damage, respiratory failure. Interventions: lopressor x 3, labs, IVFS, EKG, CXR, cardizem Course: Presenting rapid A. fib, palpitations. Heart rate in 160s. Given Lopressor x3 without effect. Given Cardizem with cardioversion achieved. Consultations: nursing staff, EMS, family Performed by: Dr Hackett Tolerated well condition = serious j. because of unstable vital signs this patient had a condition that could potentially threaten life or limb. I feel this is a critical patient who required my full attention while patient was considered critical. Total Critical Care Time excluding procedures was greater than 35 minutes Medical Decision Making Diagnostic Impression: Primary Impression: Atrial fibrillation with rapid ventricular response ER Course Hospital Course 59 yo F presents with palpitations. Differential diagnoses include: PR/unstable angina, contusion, muscle strain, PTX, rib fracture, pneumonia, Clinical course Patient placed on stretcher. on microbiology supervisor which shows A. fib with RVR. Given Lopressor x3 without significant effect. 25mg Cardizem given with cardioversion. After initial history and physical I ordered labs, EKG, chest x- ray labs reviewed- no leukocytosis, hemoglobin/hematocrit ok, electrolytes okay, troponins negative EKG - afib with RVR no acute ischemic changes interpreted by me Chest x-ray- atelectasis lower lung bases, no focal consolidation Given IV fluids. Given digoxin IV. On recent hospitalization patient required Cardizem drip in ICU with hospitalization. Controlled without drip at this time because of insurance patient will be transferred I. I feel this is a highly complex case requiring extensive working including EKG/Rhythm strip, Xray/CT/US, Blood/urine lab work, repeat exams while in ED, and administration of strong opiates/narcotics for pain control, admission to hospital or close patient follow up. Diagnosis - afib with RVR transferred in serious condition Labs Test 02/03/20 06:14 White Blood Count 10.7 K/UL (4.8-10.8) Red Blood Count 5.85 M/UL (4.20-5.40) Hemoglobin 15.8 G/DL (12.0-16.0) Hematocrit 48.4 % (37.0-47.0) Mean Corpuscular Volume 83 FL (80-99) Mean Corpuscular Hemoglobin 27.0 PG (27.0-31.0) Mean Corpuscular Hemoglobin Concent 32.7 G/DL (32.0-36.0) Red Cell Distribution Width 11.8 % (11.6-14.8) Platelet Count 382 K/UL (150-450) Mean Platelet Volume 6.8 FL (6.5-10.1) Neutrophils (%) (Auto) 60.6 % (45.0-75.0) Lymphocytes (%) (Auto) 28.1 % (20.0-45.0) Monocytes (%) (Auto) 6.3 % (1.0-10.0) Eosinophils (%) (Auto) 3.9 % (0.0-3.0) Basophils (%) (Auto) 1.2 % (0.0-2.0) Sodium Level 145 MMOL/L (136-145) Potassium Level 2.8 MMOL/L (3.5-5.1) Chloride Level 103 MMOL/L (98-107) Carbon Dioxide Level 32 MMOL/L (21-32) Anion Gap 10 mmol/L (5-15) Blood Urea Nitrogen 11 mg/dL (7-18) Creatinine 0.8 MG/DL (0.55-1.30) Estimat Glomerular Filtration Rate > 60 mL/min (>60) Glucose Level 185 MG/DL (74-106) Calcium Level 9.3 MG/DL (8.5-10.1) Total Bilirubin 0.7 MG/DL (0.2-1.0) Aspartate Amino Transf (AST/SGOT) 13 U/L (15-37) Alanine Aminotransferase (ALT/SGPT) 28 U/L (12-78) Alkaline Phosphatase 97 U/L (46-116) Troponin I 0.000 ng/mL (0.000-0.056) Pro-B-Type Natriuretic Peptide 11 pg/mL (0-125) Total Protein 8.3 G/DL (6.4-8.2) Albumin 4.0 G/DL (3.4-5.0) Globulin 4.3 g/dL Albumin/Globulin Ratio 0.9 (1.0-2.7) Urine Opiates Screen Negative (NEGATIVE) Urine Barbiturates Screen Negative (NEGATIVE) Phencyclidine (PCP) Screen Negative (NEGATIVE) Urine Amphetamines Screen Negative (NEGATIVE) Urine Benzodiazepines Screen Negative (NEGATIVE) Urine Cocaine Screen Negative (NEGATIVE) Urine Marijuana (THC) Screen Negative (NEGATIVE) EKG Diagnostic Results Rate: tachycardiac Rhythm: other - afib with RVR ST Segments: no acute changes ASA given to the pt in ED: No Rhythm Strip Diag. Results EP Interpretation: yes Rhythm: no PVC's, no ectopy Chest X-Ray Diagnostic Results Chest X-Ray Diagnostic Results : Chest X-Ray Ordered: Yes # of Views/Limited/Complete: 1 View Indication: Other EP Interpretation: Yes Interpretation: no consolidation, no effusion, no pneumothorax, no acute cardiopulmonary disease Impression: No acute disease Electronically Signed by: Electronically signed by Sami Hackett MD Last Vital Signs Date Time Temp Pulse Resp B/P (MAP) Pulse Ox O2 Delivery O2 Flow Rate FiO2 02/03/20 07:14 124 119/105 02/03/20 06:15 98.6 20 99 Room Air Status: improved Disposition: ADMITTED INPATIENT Condition: Serious Referrals: [facility],REFERRING (PCP) Sami Hackett MD February 03, 2020 07:33
[2020-02-03 07:43] LABS: ALANINE AMINOTRANSFERASE 28 U/L (12-78); ALBUMIN/GLOBULIN RATIO 0.9 (1.0-2.7); ALKALINE PHOSPHATASE 97 U/L (46-116); ASPARTATE AMINO TRANSFERASE 13 U/L (15-37); BILIRUBIN,TOTAL 0.7 MG/DL (0.2-1.0)
[2020-02-03] MEDS ORDERED: Digoxin 0.5mg/2ml Inj IVP ONE ×2 (07:45→08:42)
[2020-02-03] MEDS ORDERED: dilTIAZem HCl 60mg tab ORAL ONE (09:15)
--- NOTE | 2020-02-03 09:32 | NUR ---
ED Nurse Note: Contacted below 3 times. No answer and left a message to Jaylen. Hospital Name: [facility] * #: [id number] *Nurse taking report: JAYLEN, NURSING SUP *Nurse's Telephone #: [phone] *Accepting MD: DR BRIGHT *Transportation: [facility] *ETA: 60-90 MIN *Reason for Transfer: IPA
--- NOTE | 2020-02-03 09:33 | NUR ---
ED Nurse Note: Dut to low BP, Cardizem was not given. Notified MD Lew.
--- NOTE | 2020-02-03 09:54 | NUR ---
ED Nurse Note: Report given to ROSIBEL York at [facility]. Answered all questions and POC was reviewed.
--- NOTE | 2020-02-03 10:06 | Diagnostic Imaging Report ---
Indication: Chest pain Technique: One view of the chest Comparison: 01/17/2020 Findings: Body habitus limits evaluation. The heart size is upper limits normal. The aorta is tortuous. Upper mediastinum is unremarkable. No definite infiltrates, effusions, congestion. Findings are unchanged Impression: No definite acute process
--- NOTE | 2020-02-03 10:22 | NUR ---
ER DISCHARGE NOTE: Patient is transfered to [facility]. Pt is aox4, on room air, with stable vital signs. pt was able to verbalize understanding, pt id band removed without complications. pt is able to ambulate with steady gait. pt took all belongings and her own meds.
[2020-02-03 10:26] VITALS: BP 131/84
== END 2020-02-03 10:22 | disposition short-term general hospital (02) ==
LOC: EDBD 06:06 → EMR 06:29
DX: I48.20 Chronic atrial fibrillation, unspecified (principal); Z88.6 Allergy status to analgesic agent; I10 Essential (primary) hypertension; K21.9 Gastro-esophageal reflux disease without esophagitis; R73.03 Prediabetes; E11.9 Type 2 diabetes mellitus without complications
CPT/HCPCS: 36415; 71045; 80053; 80307; 83880; 84484; 85025; 93005; 96361; 96374; 96375; J1160; J7030; J7040; Z7502; 99291; J8499

== ENCOUNTER 2020-02-09 02:04 | Emergency (ER) | payer OTHER ==
[~2020-02-09] VITALS: Ht 172.7 cm; Wt 120.2 kg
[~2020-02-09 02:04] MED LIST changes: +AFRIN NASAL SPR30 ML NASAL
[2020-02-09 02:10] VITALS: BP 144/90
--- NOTE | 2020-02-09 02:15 | Emergency Room Report ---
History of Present Illness General Chief Complaint: Upper Respiratory Illness Present Illness HPI This a 59-year-old female with a history of hypertension and new onset atrial fibrillation diagnosed last month. She currently taking Eliquis. She presents with chief complaint of shortness of breath. Onset was a few hours ago. Gradual onset. Worse with exertion. Better with rest. Also with chest tightness. She called 911. EMS did not give her medication. Denies any fever chills. No nausea no vomiting. No diaphoresis. Pain is 7 out of 10. Described as tightness. Patient was just here on February 02 for similar complaint. She was in rapid A. fib and was transferred to [facility]. She stayed here for about a day. Said they did a lot of blood work and sent her home. Allergies: Coded Allergies: CODEINE (Unverified Allergy, Unknown, 10/27/19) MORPHINE (Unverified Allergy, Unknown, 01/08/15) COVID-19 Screening Contact w/high risk pt: No Recent Travel to affected area: No Experienced COVID-19 symptoms?: Yes COVID-19 symptoms experienced: Shortness of Breath Patient History Past Medical History: see triage record, old chart reviewed, HTN, AFib Past Surgical History: other Pertinent Family History: none Social History: Denies: smoking Last Menstrual Period: na Now: No : 2 Para: 2 Immunizations: other Reviewed Nursing Documentation: PMH: Agreed; PSxH: Agreed Nursing Documentation-PMH Hx Cardiac Problems: Yes - aFIB Hx Hypertension: Yes Hx COPD: Yes - BRONCHITIS Hx Diabetes: Yes - Prediabetes Hx Cancer: No Hx Gastrointestinal Problems: Yes Hx Neurological Problems: No Review of Systems Eye: Denies: eye pain, blurred vision ENT: Denies: ear pain, nose congestion, throat swelling Respiratory: Reports: shortness of breath; Denies: cough Cardiovascular: Reports: chest pain; Denies: palpitations Gastrointestinal: Denies: abdominal pain, diarrhea, nausea, vomiting Musculoskeletal: Denies: back pain, joint pain Skin: Denies: rash Neurological: Denies: headache, numbness Endocrine: Denies: increased thirst, increased urine Hematologic/Lymphatic: Denies: easy bruising All Other Systems: negative except mentioned in HPI Physical Exam Vital Signs Date Time Temp Pulse Resp B/P (MAP) Pulse Ox O2 Delivery O2 Flow Rate FiO2 02/09/20 02:02 98.6 64 18 189/120 (143) 97 Room Air Vitals with high blood pressure Sp02 EP Interpretation: reviewed, normal General Appearance: well appearing, no apparent distress, alert, obese Head: normocephalic, atraumatic Eyes: bilateral eye PERRL, bilateral eye EOMI ENT: hearing grossly normal, normal pharynx Neck: full range of motion, supple, no meningismus Respiratory: chest non-tender, lungs clear, normal breath sounds Cardiovascular #1: no murmur, irregularly irregular Gastrointestinal: normal bowel sounds, non tender, no mass, no organomegaly, no bruit, non-distended Musculoskeletal: back normal, normal range of motion, gait/station normal Psychiatric: mood/affect normal Medical Decision Making Diagnostic Impression: Primary Impression: Chronic a-fib Additional Impression: Dyspnea Qualified Codes: R06.00 - Dyspnea, unspecified ER Course Patient presents with dyspnea. This occurred when she said her heart was beating fast. Heart rate is actually in the low and in the 50s here. Blood pressure improved without any intervention. She does have body habitus and symptoms consistent with sleep apnea. No evidence of ACS, PE, dissection to name a few. PE is less likely since she is taking Eliquis already. Will discharge home with reassurance and recommendation for outpatient sleep study. EKG Diagnostic Results Rate: normal Rhythm: other - A. fib ST Segments: other - NSST changes Rhythm Strip Diag. Results EP Interpretation: yes Rate: 60 Rhythm: no PVC's, no ectopy, other - afib Chest X-Ray Diagnostic Results Chest X-Ray Diagnostic Results : Chest X-Ray Ordered: Yes # of Views/Limited/Complete: 1 View Indication: Shortness of Breath EP Interpretation: Yes Interpretation: no consolidation, no effusion, no pneumothorax, no acute cardiopulmonary disease Impression: No acute disease Electronically Signed by: Guido Coelho MD Last Vital Signs Date Time Temp Pulse Resp B/P (MAP) Pulse Ox O2 Delivery O2 Flow Rate FiO2 02/09/20 02:02 98.6 64 18 189/120 (143) 97 Room Air Status: improved Disposition: HOME, SELF-CARE Condition: Stable Additional Instructions: Continue with your medication. Follow-up with your doctor within a week. Recommend outpatient sleep study to check for sleep apnea. Return if symptoms worsen. Guido Coelho MD February 09, 2020 02:15
[2020-02-09] MEDS ORDERED: Hydromorphone 0.5mg/0.5ml inj ONE (02:16)
[2020-02-09] MEDS: Hydromorphone 0.5mg/0.5ml inj IVP ONE ×2 (02:17→02:21)
[2020-02-09 02:32] LABS: ANION GAP 8 mmol/L (5-15); BLOOD UREA NITROGEN 11 mg/dL (7-18); CALCIUM 9.1 MG/DL (8.5-10.1); CARBON DIOXIDE 30 MMOL/L (21-32); CHLORIDE 102 MMOL/L (98-107); CREATININE 0.9 MG/DL (0.55-1.30); POTASSIUM 3.1 MMOL/L (3.5-5.1); SODIUM 140 MMOL/L (136-145)
[2020-02-09 02:34] LABS: BASOPHILS % (AUTO) 1.2 % (0.0-2.0); HEMATOCRIT 43.8 % (37.0-47.0); HEMOGLOBIN 14.7 G/DL (12.0-16.0); LYMPHOCYTES % (AUTO) 22.8 % (20.0-45.0); MEAN CORPUSCULAR VOLUME 81 FL (80-99); MONOCYTES % (AUTO) 6.2 % (1.0-10.0); NEUTROPHILS % (AUTO) 65.8 % (45.0-75.0); PLATELET COUNT 347 K/UL (150-450); RED CELL DISTRIBUTION WIDTH 11.7 % (11.6-14.8); WHITE BLOOD COUNT 10.9 K/UL (4.8-10.8)
[2020-02-09 02:50] LABS: APPEARANCE,URINE CLEAR; BILIRUBIN, URINE NEGATIVE (NEGATIVE); COLOR,URINE PALE YELLOW; GLUCOSE, URINE (UA) NEGATIVE (NEGATIVE); KETONES,URINE NEGATIVE (NEGATIVE); LEUKOCYTE ESTERASE ,URINE 1+ (NEGATIVE); NITRITE,URINE NEGATIVE (NEGATIVE); PH,URINE 6 (4.5-8.0); PROTEIN,URINE 1+ (NEGATIVE); UROBILINOGEN,URINE NORMAL MG/DL (0.0-1.0)
[2020-02-09 03:15] VITALS: BP 144/90
--- NOTE | 2020-02-09 13:56 | Diagnostic Imaging Report ---
Indication: Shortness of breath Technique: One view of the chest Comparison: 02/03/2020 Findings: Body habitus limits evaluation. No definite acute infiltrates, effusions, or congestion. Normal heart size. Tortuous aorta. No significant change Impression: No definite acute process
== END 2020-02-09 03:15 | disposition home or self-care (01) ==
LOC: EDBD 02:04 → EMR 02:30
DX: I48.20 Chronic atrial fibrillation, unspecified (principal); R06.00 Dyspnea, unspecified; J44.9 Chronic obstructive pulmonary disease, unspecified; R73.03 Prediabetes; Z79.01 Long term (current) use of anticoagulants; Z88.5 Allergy status to narcotic agent
CPT/HCPCS: 36415; 71045; 80048; 81003; 83880; 84484; 85025; 85610; 85730; 93005; Z7502; 99283

== ENCOUNTER 2020-06-18 18:24 | Emergency (ER) | payer OTHER ==
[~2020-06-18] VITALS: Ht 167.6 cm; Wt 131.5 kg
--- NOTE | 2020-06-18 18:21 | NUR ---
ED Nurse Note: Pt arrived with RA 834 due to epitaxis from home. pt is on [employer].
[2020-06-18 18:24] VITALS: BP 179/114
--- NOTE | 2020-06-18 18:25 | NUR ---
ED Nurse Note: ERMD at bedside with GRIS
--- NOTE | 2020-06-18 18:49 | Emergency Room Report ---
History of Present Illness General Chief Complaint: Nosebleed Source: Patient Present Illness HPI Patient is a 60-year-old female who presents for increased bleeding from her left naris. Patient had recent digital trauma to the left nare. Reports having increased bleeding starting this morning. Prior history of anticoagulant use with Eliquis. Has history of atrial fibrillation. Denies prior episodes of nasal bleeding. Allergies: Coded Allergies: CODEINE (Unverified Allergy, Unknown, 10/27/19) MORPHINE (Unverified Allergy, Unknown, 01/08/15) COVID-19 Screening Contact w/high risk pt: No Recent Travel to affected area: No Experienced COVID-19 symptoms?: No COVID-19 symptoms experienced: Shortness of Breath COVID-19 Testing performed LAUNDRY OPERATOR FINISHING: No Patient History Past Medical History: see triage record Last Menstrual Period: na Reviewed Nursing Documentation: PMH: Agreed; PSxH: Agreed Nursing Documentation-PMH Past Medical History: No History, Except For Hx Hypertension: Yes Hx COPD: Yes - BRONCHITIS Hx Diabetes: Yes - Prediabetes Hx Cancer: No Hx Gastrointestinal Problems: Yes Hx Neurological Problems: No Review of Systems All Other Systems: negative except mentioned in HPI Physical Exam Vital Signs Date Time Temp Pulse Resp B/P (MAP) Pulse Ox O2 Delivery O2 Flow Rate FiO2 06/18/20 18:21 98.1 80 19 181/110 (133) 98 Room Air Sp02 EP Interpretation: reviewed, normal General Appearance: normal inspection, alert, obese, Chronically Ill Head: atraumatic ENT: normal ENT inspection, hearing grossly normal, normal voice, other - Left nare with increased bright red blood appears to be from the septum. Neck: normal inspection, full range of motion, supple, no bony tend Respiratory: normal inspection, lungs clear, normal breath sounds, no respiratory distress, no retraction, no wheezing Cardiovascular #1: regular rate, rhythm, no edema Gastrointestinal: normal inspection, normal bowel sounds, non tender, soft, no guarding, no hernia Genitourinary: no CVA tenderness Musculoskeletal: normal inspection, back normal, normal range of motion Neurologic: alert, motor strength/tone normal, splicing supervisor III-XII nml as tested, oriented x3, responsive, speech normal, normal inspection Psychiatric: normal inspection, judgement/insight normal, mood/affect normal Medical Decision Making ER Course Patient presented for epistaxis. Differential diagnosis include but was not limited to coagulopathy, posterior epistaxis, anemia, and others. Because of complexity of patient's case laboratory tests were ordered. Last Vital Signs Date Time Temp Pulse Resp B/P (MAP) Pulse Ox O2 Delivery O2 Flow Rate FiO2 06/18/20 18:24 98.4 99 16 179/114 99 Room Air Nadeem Brar MD Jun 18, 2020 18:49
--- NOTE | 2020-06-18 18:54 | NUR ---
ED Nurse Note: blood specimen collected with butterfly needle.
--- NOTE | 2020-06-18 18:56 | NUR ---
ED Nurse Note: Pt left nare continously bleeding, rhinorocket slipped out of nare
--- NOTE | 2020-06-18 18:58 | NUR ---
ED Nurse Note: ERMD aware of rhinorocket displacing. ERMD will place new one. ERMD at bedside.
[2020-06-18] MEDS ORDERED: Oxymetazoline 0.05% Na Spray 30ml NASAL ONE (19:00)
--- NOTE | 2020-06-18 19:01 | NUR ---
ED Nurse Note: Ovrode Afrin spray per ERMD verbal order.
--- NOTE | 2020-06-18 19:07 | NUR ---
HAND-OFF: Report given to STALIN Dowling.
--- NOTE | 2020-06-18 19:11 | NUR ---
ED Nurse Note: Recieved report from STALIN Samayoa. Patient resting in bed, no acute distress noted.
[2020-06-18 19:17] LABS: BASOPHILS % (AUTO) 1.6 % (0.0-2.0); EOSINOPHILS % (AUTO) 3.4 % (0.0-3.0); HEMATOCRIT 53.2 % (37.0-47.0); HEMOGLOBIN 16.6 G/DL (12.0-16.0); LYMPHOCYTES % (AUTO) 24.5 % (20.0-45.0); MEAN CORPUSCULAR VOLUME 84 FL (80-99); NEUTROPHILS % (AUTO) 64.5 % (45.0-75.0); PLATELET COUNT 282 K/UL (150-450); RED BLOOD COUNT 6.34 M/UL (4.20-5.40); RED CELL DISTRIBUTION WIDTH 13.4 % (11.6-14.8); WHITE BLOOD COUNT 8.8 K/UL (4.8-10.8)
[2020-06-18 19:31] LABS: ANION GAP 11 mmol/L (5-15); BLOOD UREA NITROGEN 23 mg/dL (7-18); CALCIUM 9.8 MG/DL (8.5-10.1); CARBON DIOXIDE 29 MMOL/L (21-32); CHLORIDE 101 MMOL/L (98-107); CREATININE 0.8 MG/DL (0.55-1.30); POTASSIUM 3.4 MMOL/L (3.5-5.1); SODIUM 141 MMOL/L (136-145)
[2020-06-18 19:35] LABS: ALANINE AMINOTRANSFERASE 24 U/L (12-78); ALBUMIN 4.2 G/DL (3.4-5.0); ALKALINE PHOSPHATASE 78 U/L (46-116); ASPARTATE AMINO TRANSFERASE 18 U/L (15-37); BILIRUBIN,TOTAL 0.6 MG/DL (0.2-1.0)
[2020-06-18] MEDS ORDERED: AMOXICILLIN500 MG ORAL (21:37)
[2020-06-18 22:00] VITALS: BP 159/95
--- NOTE | 2020-06-18 22:00 | NUR ---
ER DISCHARGE NOTE: Patient is cleared to be discharged per ERMD, pt is aox4, on room air, with stable vital signs. pt was given dc and prescription instructions, pt was able to verbalize understanding, pt id band removed. pt is able to ambulate with steady gait. pt took all belongings. pt stable upon discharge.
[2020-06-19] MEDS ORDERED: NORCO 5-325 TA1 EAC1 ORAL (15:37)
[2020-06-19] MEDS ORDERED: LACTULOSE20 GM/301 ORAL (15:37)
[2020-06-19] MEDS ORDERED: ELIQUIS2.5 MG PO (16:07)
== END 2020-06-18 22:00 | disposition home or self-care (01) ==
LOC: EDBD 18:24 → EMR 18:51
DX: R04.0 Epistaxis (principal); E66.9 Obesity, unspecified; I10 Essential (primary) hypertension; J44.9 Chronic obstructive pulmonary disease, unspecified; Z88.6 Allergy status to analgesic agent
CPT/HCPCS: 36415; 80053; 84484; 85025; 85610; 85730; Z7502; 99283

== ENCOUNTER 2020-06-19 14:30 | Emergency (ER) | payer OTHER ==
[~2020-06-19] VITALS: Ht 172.7 cm; Wt 133.8 kg
[~2020-06-19 14:30] MED LIST changes: +AMOXICILLIN500 MG ORAL
--- NOTE | 2020-06-19 15:00 | NUR ---
ED Nurse Note: Patient walked into the ED for rhinorocket to be checked on left nares that was placed yesterday at [facility]. Patient stated he scratched her nose accidentally and caused pain. Patient stated there was minimal bleeding. Upon assessment rhinorocket is not displaced and no bleeding was noted. Patient is on Eliquis BID. Bp 144/89. PAtient AAOX4 and ambulatory
--- NOTE | 2020-06-19 15:20 | NUR ---
ED Nurse Note: ERMD at bedside
--- NOTE | 2020-06-19 15:23 | Emergency Room Report ---
History of Present Illness General Chief Complaint: Nosebleed Source: Patient Present Illness HPI The patient presents with facial and nose pain after having a Rhino Rocket placed for epistaxis yesterday. The patient is taking Eliquis. She is here requesting that the Rhino Rocket be removed. She attempted to get follow-up with her own doctor and ENT but was unable to for 2 weeks. She denies fevers or chills. She is taking the antibiotics. She rates the pain in 10/10 in her nose and anterior face on the left-hand side. There is no further bleeding. Patient is on Eliquis for treatment of atrial fibrillation. Patient denies any chest pain or palpitations. She denies nausea, vomiting. Allergies: Coded Allergies: CODEINE (Unverified Allergy, Unknown, 10/27/19) MORPHINE (Unverified Allergy, Unknown, 01/08/15) COVID-19 Screening Contact w/high risk pt: No Recent Travel to affected area: No Experienced COVID-19 symptoms?: No COVID-19 symptoms experienced: Shortness of Breath COVID-19 Testing performed SALES [employer]: No Patient History Past Medical History: see triage record Past Surgical History: other - Knee replacement Social History: Reports: smoking Social History Narrative Brought by sister Reviewed Nursing Documentation: PMH: Agreed; PSxH: Agreed Nursing Documentation-PMH Past Medical History: No History, Except For Hx Hypertension: Yes Hx COPD: Yes - BRONCHITIS Hx Diabetes: Yes - Prediabetes Hx Cancer: No Hx Gastrointestinal Problems: Yes Hx Neurological Problems: No Review of Systems Constitutional: Reports: see HPI Eye: Denies: tearing ENT: Reports: see HPI Cardiovascular: Reports: see HPI Gastrointestinal: Reports: see HPI Skin: Denies: rash Hematologic/Lymphatic: Reports: see HPI Physical Exam Vital Signs Date Time Temp Pulse Resp B/P (MAP) Pulse Ox O2 Delivery O2 Flow Rate FiO2 06/19/20 14:32 97.3 75 16 163/109 (127) 98 Room Air Sp02 EP Interpretation: reviewed, normal General Appearance: well appearing, no apparent distress, GCS 15 Head: normocephalic Eyes: bilateral eye normal inspection, bilateral eye PERRL, bilateral eye EOMI ENT: moist mucus membranes, other - Rhino Rocket present with no active bleeding Neck: normal inspection Respiratory: normal inspection Cardiovascular #1: normal peripheral pulses Cardiovascular #2: 2+ radial (R) Gastrointestinal: normal inspection, overweight Musculoskeletal: gait/station normal Neurologic: alert, grossly normal Psychiatric: other - Tearful and in pain Skin: normal color, no rash, warm/dry Medical Decision Making Diagnostic Impression: Primary Impression: Facial pain, acute Additional Impression: Epistaxis ER Course Patient presents 1 day after Rhino Rocket placement for epistaxis. She is requesting that this be removed. She is taking antibiotics and is afebrile. This excludes significant visual infection at the moment. Lab values reviewed from yesterday. No need to repeat labs at this time. Discussed with patient that was premature to remove the Rhino Rocket. I suggested that she take pain medication at this time. She is adverse to using opiates because her mother was addicted. She finally agreed. I contacted the patient's private physician and relayed that she needed more close follow-up with the ear nose and throat. He stated he was going to make sure that she had semiurgent follow-up appointment. Patient improved and stable for outpatient observation and treatment. Last Vital Signs Date Time Temp Pulse Resp B/P (MAP) Pulse Ox O2 Delivery O2 Flow Rate FiO2 06/19/20 16:03 97.5 90 18 145/85 Room Air 06/19/20 15:30 98 Status: improved Disposition: HOME, SELF-CARE Condition: Improved Scripts Lactulose (LACTULOSE*) 20 Gm/30 Ml Solution 30 ML ORAL QHS PRN for Constipation, #240 ML 0 Refills Prov: Aston Whitten MD 06/19/20 Hydrocodone Bit/Acetaminophen 5-325* (NORCO 5-325 TABLET*) 1 Each Tablet 1 TAB ORAL Q6H PRN for FOR PAIN, #10 TAB 1 Refill Prov: Aston Whitten MD 06/19/20 Aston Whitten MD Jun 19, 2020 15:23
[2020-06-19 15:30] VITALS: BP 149/97
[2020-06-19] MEDS ORDERED: oxyCODONE HCL/Acetaminophen 5/325mg ORAL ONE (15:30)
[2020-06-19] MEDS ORDERED: LACTULOSE20 GM/301 ORAL (15:37)
[2020-06-19] MEDS ORDERED: NORCO 5-325 TA1 EAC1 ORAL (15:37)
[2020-06-19 16:03] VITALS: BP 145/85
--- NOTE | 2020-06-19 16:06 | NUR ---
ER DISCHARGE NOTE: Patient is cleared to be discharged per ERMD, pt is aox4, on room air, with stable vital signs. pt was given dc and prescription instructions, pt was able to verbalize understanding, pt id band removed. pt is able to ambulate with steady gait. pt took all belongings.
[2020-06-19] MEDS ORDERED: ELIQUIS2.5 MG PO (16:07)
== END 2020-06-19 16:30 | disposition home or self-care (01) ==
LOC: EMR 15:15
DX: R04.0 Epistaxis (principal); R51 Headache; J44.9 Chronic obstructive pulmonary disease, unspecified; R73.03 Prediabetes; F17.200 Nicotine dependence, unspecified, uncomplicated; Z96.659 Presence of unspecified artificial knee joint; Z88.6 Allergy status to analgesic agent; Z79.01 Long term (current) use of anticoagulants
CPT/HCPCS: 99282

== ENCOUNTER 2020-06-21 17:01 | Emergency (ER) | payer OTHER ==
[~2020-06-21] VITALS: Ht 172.7 cm; Wt 133.8 kg
[~2020-06-21 17:01] MED LIST changes: +ELIQUIS2.5 MG PO; +LACTULOSE20 GM/301 ORAL; +NORCO 5-325 TA1 EAC1 ORAL
[2020-06-21 17:18] VITALS: BP 172/100
--- NOTE | 2020-06-21 17:24 | Emergency Room Report ---
History of Present Illness General Chief Complaint: Nosebleed Source: Patient Present Illness HPI Patient is a 60-year-old female presents for recheck of nosebleed. Patient had recent nasal rocket placed for anterior nosebleed. Denies any bleeding or fever. Has been taking antibiotics as prescribed. Denies any other complaints.Patient had previous history of hypertension as well as anticoagulant use due to atrial fibrillation. Denies any dizziness or lightheadedness. Denies any recent bleeding episodes. Allergies: Coded Allergies: CODEINE (Unverified Allergy, Unknown, 10/27/19) MORPHINE (Unverified Allergy, Unknown, 01/08/15) COVID-19 Screening Contact w/high risk pt: No Recent Travel to affected area: No Experienced COVID-19 symptoms?: No COVID-19 symptoms experienced: Shortness of Breath COVID-19 Testing performed SACK MAKER: No Patient History Past Medical History: see triage record Last Menstrual Period: na Reviewed Nursing Documentation: PMH: Agreed; PSxH: Agreed Nursing Documentation-PMH Past Medical History: No History, Except For Hx Hypertension: Yes Hx COPD: Yes - BRONCHITIS Hx Diabetes: Yes - Prediabetes Hx Cancer: No Hx Gastrointestinal Problems: Yes Hx Neurological Problems: No Review of Systems All Other Systems: negative except mentioned in HPI Physical Exam Vital Signs Date Time Temp Pulse Resp B/P (MAP) Pulse Ox O2 Delivery O2 Flow Rate FiO2 06/21/20 17:04 98.1 82 16 172/100 (124) 97 Room Air General Appearance: well appearing, no apparent distress, alert, GCS 15, non- toxic Head: normocephalic, atraumatic ENT: hearing grossly normal, normal voice Neck: full range of motion, supple Respiratory: lungs clear, no respiratory distress, speaking full sentences Cardiovascular #1: normal inspection, regular rate, rhythm Gastrointestinal: normal inspection Musculoskeletal: normal inspection Neurologic: alert, motor strength/tone normal, marker delivery III-XII nml as tested, oriented x3, normal gait Psychiatric: mood/affect normal Skin: no rash Medical Decision Making Diagnostic Impression: Primary Impression: Encounter for removal of nasal pack ER Course Patient presented for removal of nasal packing. Differential diagnosis include was not limited to recurrent epistaxis, among others. Patient was placed in a room and packing was removed with gentle axial traction. Patient tolerated this well but had recurrence of bleeding. Patient was given Afrin into the left nare as well as topical tranexamic acid. Patient was noted to have prior history of hypertension and was advised to resume her hypertensive medications. Patient is given prescription for further antibiotics.The patient is advised to follow up with primary care physician for recheck.Patient is advised to hold a single dose of her Eliquis. Patient is advised to return if any worsening condition or if any changes in status that are concerning. This report is dictated with [employer] wind turbine erector software which may occasionally lead to discrepancies related to use of this software. Last Vital Signs Date Time Temp Pulse Resp B/P (MAP) Pulse Ox O2 Delivery O2 Flow Rate FiO2 06/21/20 17:04 98.1 82 16 172/100 (124) 97 Room Air Status: improved Disposition: HOME, SELF-CARE Condition: Stable Scripts Amoxicillin (AMOXICILLIN) 500 Mg Tablet 500 MG PO THREE TIMES A DAY, #12 TAB Prov: Nadeem Brar MD 06/21/20 Nadeem Brar MD Jun 21, 2020 17:24
[2020-06-21] MEDS ORDERED: Oxymetazoline 0.05% Na Spray 30ml NASAL ONE (17:45)
[2020-06-21] MEDS ORDERED: AMOXICILLIN500 M1 PO (18:27)
[2020-06-21 18:54] VITALS: BP 166/102
== END 2020-06-21 18:57 | disposition home or self-care (01) ==
LOC: EMR 17:18
DX: Z76.89 Persons encountering health services in other specified circumstances (principal); I10 Essential (primary) hypertension; J44.9 Chronic obstructive pulmonary disease, unspecified; Z88.5 Allergy status to narcotic agent
CPT/HCPCS: 99281